=== PATIENT | female | born 1955 | race Caucasian/White ===

== ENCOUNTER 2016-10-16 10:53 | Emergency (ER) | payer OTHER ==
[~2016-10-16 10:53] MED LIST: ALBUTEROL SUL0.083 % IN; ALDACTONE25 MG PO; CARVEDILOL12.5 MG PO; CLARITIN10 M2 PO; DELZICOL400 MG PO; DIFLUCAN100 MG PO; DIPHENOXYLATE/2.5 MG PO; DOCUSATE CALCI240 MG PO; FAMCICLOVIR250 MG PO; FLUTICASONE PR50 MCG; FOLIC ACID1 MG PO; FUROSEMIDE40 MG PO; KLOR-CON 1010 MEQ PO; LEVO-T88 MCG PO; LIALDA1.2 GM PO; LIDODERM5 % TOP; LOSARTAN POTASS1 TA1; LOSARTAN POTASS1 TA1 PO; METHOCARBAMOL500 MG PO; METHOTREXATE2.5 MG PO; METOLAZONE5 MG PO; MILLIPRED DP5 MG PO; MUPIROCIN2 %; NITRO-DUR0.4 MG/HR SL; NORCO1 TA1 PO; PERCOCET1 TA1 PO; POTASSIUM CHLORI10 % PO; PREDNISONE20 MG PO; PROVENTIL HFA IN; VITAMIN D H1000 UNIT PO; ZOFRAN ODT4 MG PO
--- NOTE | 2016-10-16 12:18 | DIAGNOSTIC IMAGING REPORT ---
PROCEDURE: XR CHEST 1 VIEW INDICATION: SHORTNESS OF BREATH TECHNIQUE: Portable AP view chest 11:52 a.m. COMPARISON: Chest 09/02/2014 FINDINGS: New pacemaker on the right. Lungs are clear. Heart is mildly enlarged. mediastinum is normal. Thorax is normal. IMPRESSION: 1. Mild cardiomegaly. Lungs clear.
--- NOTE | 2016-10-16 19:30 | ED NURSING NOTES ---
Clinical Report - Nurses [facility] [address] [place] [address] 10/16/2016 10:54 Patient: LUISA BADILLO TRIAGE Triage time 1110. Acuity: LEVEL 3. Chief Complaint: (pt brought in by daughter, c/o cough, fever, general body aches- has had for 3 weeks, but much worse last 2 days). 11:10. ARTEMIO COMA SCORE: [place] Coma Scale: 15- eyes open spontaneously (4); best verbal response- oriented x 4 (5); best motor response- obeys commands (6). --11:30 Guadalupe Dominguez R.N. 11:22 10/16/16. BP: 115/51. HR: 102. RR: 20. O2 saturation: 94% on room air. Temp: 99.3 F. Pain level now: 06/30. Additional comments: 97 on 2 L . --11:30 Guadalupe Dominguez R.N. Weight: 57.6 kg estimated. Height/Length: 66.5 inches Estimated. BMI: 20.2. --11:30 Guadalupe Dominguez R.N. Medications Albuterol Sulfate Inhalation 1 unit dose, q 6hrs as needed. Carvedilol Oral 28.125 mg , BID. Claritin Oral 10 mg, PRN. Docusate Calcium Oral (Capsule 240 mg) 4 capsules daily. Famciclovir Oral 250 mg, 2x a day. Fluconazole Oral 100 mg, daily, for 9 days. Fluticasone Propionate Nasal 2 sprays each nostril daily or BID. Furosemide Oral 160 mg, 2x a day. Hydrocodone-Acetaminophen Oral 5 mg, as needed, max 9 in 24hrs. Levothyroxine Sodium Oral 88 mcg, daily. Losartan Potassium Oral 25 mg, daily. Mesalamine Oral 1.2 gms, 2 tabs daily. Methotrexate Oral 2.5 mg, 8 tablets, once a week. Nitroglycerin Translingual 0.4mg tablet, as needed. Potassium Chloride CR Oral (Tablet Extended Release 10 meq) 4 tablets, BID. PrednisoLONE Oral 15mg, 2x a day. Proventil HFA Inhalation 1-2 puffs, NTE 10 puffs, 4x a day as needed. Spironolactone Oral 25 mg, daily. --11:26 Guadalupe Dominguez R.N. Vitamin D Oral (Capsule 2000 unit) 1 capsule, daily. Zofran Oral 4 mg, as needed. --11:26 Guadalupe Dominguez R.N. Allergies Acyclovir and Related. Carbamazepine. Cefaclor. Flagyll. Glucosamine. Morphine and Related. Naproxen. Nitrofurantoin. Sulfa Antibiotics. Tegratol. --11:26 Guadalupe Dominguez R.N. History Arrived by private vehicle. Historian: patient. Accompanied by (dropped off by daughter). Primary physician (Sonam). Onset. (3 weeks). She has had fever and weakness. She has had a cough (yellow sputum). Reports muscle aches. SOCIAL HX: Former smoker (quit 1997). Alcohol use. (did drink in past, hasn't since colon surgery). No drug use. --11:30 Guadalupe Dominguez R.N. PROBLEMS: Arthritis. Syncope. Hypomagnesemia. Heart Disease. Myofascial Strain. Fibromyalgia. Hypokalemia. Congestive Heart Failure. Hypertension. Migraine Headache. Hypothyroidism. Stress Reaction. C. Difficile Colitis. Rectal Bleed. Vitamin D deficiency. Ulcerative Colitis. Osteopenia. Breast Cancer. Arthropathy. COPD - Chronic Obstructive Pulmonary Disease. --11:27 Guadalupe Dominguez R.N. ADDITIONAL SURGERIES: Breast CA lumpectomy left side. Endometriosis. Hemmorhage with child . Sinus Surgery. Tonsillectomy. Tubal Ligation. --11:27 Guadalupe Dominguez R.N. Interventions ID band on patient. To treatment room. --11:30 Guadalupe Dominguez R.N. PHYSICAL ASSESSMENT 11:10. To room via wheelchair. Patient gowned. GENERAL / NEURO / PSYCH: Alert. Appears in pain. She has had weakness. HEENT: No facial asymmetry noted. RESPIRATORY: Cough. CVS: Capillary refill less than 2 seconds. GI / : Abdomen soft. SKIN: Skin is warm and dry. --11:31 Guadalupe Dominguez R.N. NURSING PROGRESS NOTES 11:10. Oxygen administered. Patient gowned. Head of bed elevated. Reassurance given. Patient identifiers checked. Call light placed in reach. Side rails up. Bed placed in lowest position. Patient ready for evaluation- chart flagged. --11:31 Guadalupe Dominguez R.N. 11:33 10/16/16. BP: 116/54. HR: 104. RR: 24. O2 saturation: 96% on nasal cannula at 2 liters/minute. Temp: deferred. Pain level now: 06/30. Additional comments: pt dozing, but when asked, states she is a 06/30. moans occasionally . --11:34 Guadalupe Dominguez R.N. 11:45 10/16/2016 Site #1 started via IV in the right antecubital space with an 20g angiocath, with aseptic technique and good blood return; one attempt. Blood drawn: rainbow set and cultures x1. Labeled in the presence of the patient and sent to the lab. Saline lock flushed with saline. --12:09 Guadalupe Dominguez R.N. 12:10 10/16/2016 Started bag #1 1000 mL IV Fluids IV NS (Saline); bolus of 200 mL over 15 minute(s) then at 100 mL/hr over 9 hour(s) via site #1 via IV pump. --12:11 Guadalupe Dominguez R.N. EKG time: (1241). EKG was performed by a tech and shown to the ED physician. --12:40 Shannen Finley 12:25 10/16/2016 IV Fluids IV NS via IV site #1 Rate Changed: bag #1 decreased to 100 mL/hr via IV pump. IV patency established. IV site checked: no pain, redness, or swelling. IV flushed thoroughly. --12:44 Gaudalupe Dominguez R.N. 13:33 10/16/16. ( Potassium 2.6, critical value relayed to ERMD). --13:33 Shari Holt R.N. 14:25 10/16/2016 Demerol (Meperidine HCl) IVP 12.5 mg given over 1 minute(s) via site #1. IV patency established. IV site checked: no pain, redness, or swelling. IV flushed thoroughly pre- and post-medication administration. IVP given by RN. --14:36 Guadalupe Dominguez R.N. 14:26 10/16/2016 Ativan (LORazepam) IVP 0.5 mg given over 1 minute(s) via site #1. IV patency established. IV site checked: no pain, redness, or swelling. IV flushed thoroughly pre- and post-medication administration. IVP given by RN. --14:36 Guadalupe Dominguez R.N. 13:30 10/16/16. BP: 124/72. HR: 110. RR: 22. O2 saturation: 99%. Temp: deferred. Pain level now: 06/30. Additional comments: Pt asking for pain meds, ERMD notified again. --14:53 Guadalupe Dominguez R.N. 14:00 10/16/16. BP: 114/63. HR: 117. RR: 24. O2 saturation: 95% on nasal cannula at 2 liters/minute. Temp: deferred. Pain level now: 06/30. --14:54 Guadalupe Dominguez R.N. 14:50 10/16/2016 KCL (Potassium Chloride ER) PO Syrup/Liquid 40 meq given. Allergies verified and confirmed 5 rights. --15:37 Guadalupe Dominguez R.N. 14:40. ( Pt up to [facility] she had stated she had to pee, but did not void, pt did clean out colostomy bag, but was very unsteady and needed much assistance). --15:38 Guadalupe Dominguez R.N. 15:30 10/16/16. BP: 103/73. HR: 120. RR: 26. O2 saturation: 92% on nasal cannula. Temp: deferred. Pain level now: cannot qualify. Additional comments: pt is sleeping. --15:47 Guadalupe Dominguez R.N. 15:15 10/16/2016 Started 20 meq of KCL (Potassium Chloride) IVPB in bag #1 100 mL; at 50 mL/hr over 2 hour(s) via site #1 via IV pump. IV patency established. IV site checked: no pain, redness, or swelling. IV flushed thoroughly pre- and post-medication administration. --15:48 Guadalupe Dominguez R.N. ( first contact with pt. Pt. resting quietly.). --16:31 Concetta Marlow R.N. 16:21 10/16/16. BP: 112/74. HR: 113. RR: 20. O2 saturation: 96% on nasal cannula at 2 liters/minute. --16:31 Concetta Marlow R.N. photoengraver apprentice, pulse oximeter and NIBP monitor placed on patient; director cardiac- Lead II; monitor alarms on. --16:31 Concetta Marlow R.N. 17:05 10/16/16. BP: 106/69. HR: 115. RR: 22. O2 saturation: 96% on nasal cannula at 2 liters/minute. Temp: deferred. Pain level now: 04/30. --18:00 Guadalupe Dominguez R.N. 17:20 10/16/2016 Demerol (Meperidine HCl) IVP 12.5 mg given over 1 minute(s) via site #1. --18:01 Guadalupe Dominguez R.N. 17:35. Patient ID band checked for patient name and birthdate. Clean catch urine collected with return of tobias-colored cloudy urine; odor is foul-smelling; sample sent to lab for urinalysis and culture. Specimen labeled in the presence of the patient. ( Pt on bedpan, voided 200cc). --18:02 Guadalupe Dominguez R.N. 17:20 10/16/2016 KCL IVPB Discontinued: bag #1 infused. Total amount infused: 100 mL. IV patency established. IV site checked: no pain, redness, or swelling. IV flushed thoroughly. --18:23 Guadalupe Dominguez R.N. 18:00. ( lab called, stating repeat K-3.9 ERMD notified). --18:25 Guadalupe Dominguez R.N. 19:05 10/16/16. BP: 112/67. HR: 96. RR: 20. O2 saturation: 95% on nasal cannula at 2 liters/minute. Temp: deferred. Pain level now: cannot qualify. Additional comments: pt dozing ; when awoke, HR wnet to 106 and pt asked for additional pain meds, ERMD notified, states he will be in to talk with pt soon . --19:18 Guadalupe Dominguez R.N. 19:24 10/16/16. ( ERMD in to talk with pt. Pt agreed to plan to DC home). --19:24 Guadalupe Dominguez R.N. 19:30 10/16/2016 Augmentin (Amoxicillin-Pot Clavulanate) PO Tablets 875 mg given. Allergies verified and confirmed 5 rights. --20:21 Guadalupe Dominguez R.N. 20:10 10/16/2016 Demerol (Meperidine HCl) IVP 12.5 mg given over 1 minute(s) via site #1. IV patency established. IV site checked: no pain, redness, or swelling. IV flushed thoroughly pre- and post-medication administration. IVP given by RN. --20:22 Guadalupe Dominguez R.N. 20:11 10/16/2016 IV Fluids IV NS Discontinued: bag #1 completed upon discharge. Total amount infused: 1000 mL. IV patency established. IV site checked: no pain, redness, or swelling. IV flushed thoroughly. --20:21 Indio Mcmanus R.N. DISPOSITION / DISCHARGE 20:18 10/16/2016 Site #1 removed upon discharge. Catheter intact. Bandaid applied. --20:18 Indio Mcmanus R.N. Departure time: 20:19. Condition at departure: improved. ( Pt was placed on a bedside commode before being discharged.). No learning barriers present. Discharge instructions provided and reviewed with the patient. Reviewed warnings. Reviewed medication(s). Treatments reviewed. Work note given. Patient verbalized understanding. The patient was discharged by the physician. She was discharged home and accompanied by spouse. She left the Emergency Department ambulatory and via private vehicle. Spouse driving. --20:19 Indio Mcmanus R.N. 20:20 10/16/16. BP: 112/67. HR: 96. RR: 16. O2 saturation: 96%. Pain level now 12/29. --20:21 Indio Mcmanus R.N. Locked/Released at 10/16/2016 20:22 by Indio Mcmanus R.N.
--- NOTE | 2016-10-16 19:30 | ED CLINICAL REPORT ---
Clinical Report - Physicians/Mid Levels [facility] [address] [place] [address] 10/16/2016 10:54 Patient: LUISA BADILLO Time Seen: 11:37 Oct 16 2016. Arrived- By private vehicle. Historian- patient. CPT: ER phys charges level 4 plus (#[id number]). EKG interpretation (#[id number]). HISTORY OF PRESENT ILLNESS Chief Complaint: COUGH, FEVER, CHILLS, MUSCLE ACHES and "FLU". This started about 3 weeks GASKET FORMER and is still present (worse 2 days GASKET FORMER). The illness is described as moderate. The patient has had a cough, difficulty breathing, fever, chills and muscle aches. No nasal congestion, sinus pressure or sinus drainage. Additional history - No known contact with a sick individual. Similar symptoms previously: None. Recent medical care: Not recently seen/assessed. REVIEW OF SYSTEMS The patient has had a headache. No nausea, vomiting, diarrhea, abdominal pain or pedal edema. No calf pain, difficulty with urination, skin rash or enlarged lymph nodes. All systems otherwise negative, except as recorded above. PAST HISTORY CHF Hypertension. Migraine Headache. Hypothyroidism. Stress Reaction. C. Difficile Colitis. PARISA. Rectal Bleed. Ulcerative Colitis. Osteopenia. Breast Cancer. COPD - Chronic Obstructive Pulmonary Disease Fibromyalgia Additional Surgeries: Breast CA lumpectomy left side. Endometriosis. Hemmorhage with child . Sinus Surgery. Tonsillectomy. Tubal Ligation. AICD/Pacer Colectomy/colostomy. Medications: Vitamin D Oral (Capsule 2000 unit) 1 capsule, daily. Zofran Oral 4 mg, as needed. Albuterol Sulfate Inhalation 1 unit dose, q 6hrs as needed. Carvedilol Oral 28.125 mg , BID. Claritin Oral 10 mg, PRN. Docusate Calcium Oral (Capsule 240 mg) 4 capsules daily. Famciclovir Oral 250 mg, 2x a day. Fluconazole Oral 100 mg, daily, for 9 days. Fluticasone Propionate Nasal 2 sprays each nostril daily or BID. Furosemide Oral 160 mg, 2x a day. Hydrocodone-Acetaminophen Oral 5 mg, as needed, max 9 in 24hrs. Levothyroxine Sodium Oral 88 mcg, daily. Losartan Potassium Oral 25 mg, daily. Mesalamine Oral 1.2 gms, 2 tabs daily. Methotrexate Oral 2.5 mg, 8 tablets, once a week. Nitroglycerin Translingual 0.4mg tablet, as needed. Potassium Chloride CR Oral (Tablet Extended Release 10 meq) 4 tablets, BID. PrednisoLONE Oral 15mg, 2x a day. Proventil HFA Inhalation 1-2 puffs, NTE 10 puffs, 4x a day as needed. Spironolactone Oral 25 mg, daily. Allergies: Acyclovir and Related. Carbamazepine. Cefaclor. Flagyll. Glucosamine. Morphine and Related. Naproxen. Nitrofurantoin. Sulfa Antibiotics. Tegratol. SOCIAL HISTORY Former smoker. No alcohol use. ADDITIONAL NOTES The nursing notes have been reviewed. PHYSICAL EXAM Vital Signs: 10/16/2016 11:22 BP: 115/51. HR: 102. RR: 20. O2 saturation: 94%. Temp: 99.3 F. Pain level now: 10/10. Appearance: Alert. No acute distress. Eyes: Pupils equal, round and reactive to light. Eyes normal inspection. ENT: Ears normal. Pharyngeal erythema. Neck: Normal inspection. CVS: Normal heart rate and rhythm. Heart sounds normal. Pulses normal. Respiratory: No respiratory distress. Breath sounds normal. Abdomen: Soft and nontender. Back: Normal inspection. Skin: Skin warm. Normal skin color. No rash. Extremities: Extremities exhibit normal ROM. No lower extremity edema. Neuro: Oriented X 3. No motor deficit. No sensory deficit. LABS, X-RAYS, AND EKG EKG: Paced rhythm. Prior EKG unavailable. The study has been interpreted contemporaneously. The study has been independently viewed by me. The EKG appears to be a good tracing. Chest X-ray: Mild cardiomegaly. Normal lung markings present. No infiltrate. (Pacer). Views: AP (portable). Technique: good. The X-rays were independently viewed by me and interpreted by the radiologist. Laboratory Tests: CBC w Diff: (MADELINE: 10/16/2016 11:45) ( MsgRcvd 10/16/2016 12:59) Final results Test Result Flag Units (Reference) WHITE BLOOD COUNT 11.7 H K/uL (4.5-11.5) RED BLOOD COUNT 4.29 M/uL (4.00-5.20) HEMOGLOBIN 12.4 gm/dL (12.0-16.0) HEMATOCRIT 38.0 % (36.0-46.0) MEAN CELL VOLUME 89 fL (80-100) MEAN CORPUSCULAR HGB 29 pg (26-34) MEAN CORPUSCULAR HGB CONC 33 g/dL (31-37) RED CELL DISTRIBUTION WIDTH 24.7 H % (11.6-14.8) PLATELET COUNT 475 H K/uL (150-400) NEUTROPHIL % 85.3 H % (50-75) LYMPH % 7.3 L % (25-40) MONO % 6.7 % (3-14) EOSINOPHIL % 0.3 % (0-4) BASOPHIL % 0.4 % (0-2) RBC MORPHOLOGY 1+ TARGET CELLS~~2+ STOMATOCYTOSIS~~2+ ANISOCYTOSIS BNP: (MADELINE: 10/16/2016 11:45) ( [facility] 10/16/2016 12:39) Final results Test Result Flag Units (Reference) B-TYPE NATRIURETIC PEPTIDE 69.9 pg/ml (5-100) Lactate, Serum: (MADELINE: 10/16/2016 11:45) ( MsgRcvd 10/16/2016 12:46) Final results Test Result Flag Units (Reference) LACTIC ACID 1.2 mmol/L (0.4-2.0) [id number]: (MADELINE: 10/16/2016 11:45) ( [facility] 10/16/2016 13:02) Final results Test Result Flag Units (Reference) PROCALCITONIN <0.5 ng/mL (0-0.5) PCT Concentration: Interpretation : Risk/option for action PCT <=0.5 ng/mL : Systemic : Low risk forinfection(sepsis): progression to severeis not likely. : systemic infection.Local bacterial : CAUTION-PCT levelsinfection is : below 0.5 ng/mL do notpossible. : exclude an infection,because localizedinfections (withoutsystemic signs) may beassociated with suchlow levels. If PCT ismeasured very earlyafter a bacterialchallenge (usually <6hours), these valuesmay still be low. Inthis case PCT shouldbe re-assessed 6-24hours later. PCT >0.5 and : Systemic infection: Moderate risk for<= 2 ng/mL : (sepsis) is : progression to severepossible, but : systemic infection.other conditions : The patient should beare known to : closely monitoredelevate PCT. : both clinically andby re-assessing PCTwithin 6-24 hours. PCT > 2 ng/mL : Systemic infection: High risk for(sepsis) is likely: progression to severeunless other : systemic infection.causes are known. : PCT >= 10 ng/mL : Important systemic: High likelihood ofinflammatory : severe sepsis orresponse, almost : septic shock.exclusively due to:severe bacterial :sepsis or septic :shock. : CHEM 13 PANEL: (MADELINE: 10/16/2016 11:45) ( MsgRcvd 10/16/2016 13:33) Final results Test Result Flag Units (Reference) GLUCOSE 89 mg/dL (70-110) BUN 19 H mg/dL (7-18) CREATININE 1.0 mg/dL (0.6-1.3) Estimated GFR 59.71 mL/min Estimated GFR- >60 mL/min Note: Persistent reduction over 3 months in eGFR<60 mL/min/1.73 m2 defines CKD. Patients with eGFR values>=60 mL/min/1.73 m2 may also have CKD if evidence ofpersistent proteinuria. Additional information may be foundat www.kidney.org. SODIUM 136 mmol/L (136-145) POTASSIUM 2.6 *L mmol/L (3.5-5.1) CRITICAL RESULTS CALLEDCalled to KAPIL MARTÍNEZ IN ED 10/16/16 1332Were 2 patient identifiers used? YWas the result read back? Y CHLORIDE 96 L mmol/L (98-107) CARBON DIOXIDE 28 mmol/L (21-32) CALCIUM 9.1 mg/dL (8.5-10.1) TOTAL PROTEIN 6.9 g/dL (6.4-8.2) ALBUMIN 3.1 L g/dL (3.3-5.0) BILIRUBIN, TOTAL 0.8 mg/dL (0.0-1.0) ALKALINE PHOSPHATASE 80 U/L (46-116) AST (SGOT) 25 U/L (15-37) ALT (SGPT) 30 U/L (12-78) MAGNESIUM 1.7 L mg/dL (1.8-2.4) CPK 59 U/L (24-260) TROPONIN I 0.06 ng/mL (0.00-1.5) TROPONIN REFERENCE RANGE:<0.1 NEGATIVE0.1-1.5 INDETERMINANT>1.5 POSITIVE Rapid Influenza Screen: (MADELINE: 10/16/2016 11:58) ( MsgRcvd 10/16/2016 12:32) Final results SPECIMEN DESCRIPTION: SWAB Test Result Flag Units (Reference) RAPID INFLUENZA SCREEN DATE: 10/16/16 INFLUENZA A: NEGATIVE SCREEN FOR INFLUENZA A INFLUENZA B: NEGATIVE SCREEN FOR INFLUENZA B . PROGRESS AND PROCEDURES Course of Care: 14:41 10/16/16. The patient indicates that she had a heart attack in the past and reactions to rheumatologic medications that resulted in CHF. This is why she is on the cardiac medications and the diuretics. She is here today primarily because of her increased cough sputum production and dyspnea over the last several days. She is also weak today and has a potassium of 2.6 as well as some dehydration that would help explain that. 18:24 10/16/16. Potassium level now corrected to 3.9 after ,PO and IV potassium. Patient is stable. Symptoms better. Patient/family counseled. Disposition: Discharged. Condition: stable. CLINICAL IMPRESSION Acute bacterial bronchitis associated with bronchospasm. Hypokalemia: resolved after treatment. Chronic CHF Dehydration. INSTRUCTIONS No strenuous activity. Rest. Drink plenty of fluids. (Hold your lasix for one day.). Warnings: Further evaluation is necessary. SEDATIVE MEDICATION: You were given sedative medication during your visit. Do not drive or operate dangerous machinery. GENERAL WARNINGS: Return or contact your physician immediately if your condition worsens or changes unexpectedly, if not improving as expected, or if other problems arise. Your Current Medications: CONTINUE TAKING THE FOLLOWING MEDICATIONS: Albuterol Sulfate Inhalation : 1 unit dose q 6hrs, prn. Carvedilol Oral : 28.125 mg BID. Claritin Oral : 10 mg PRN. Docusate Calcium Oral : Capsule 240 mg, 4 capsules daily. Famciclovir Oral : 250 mg 2x a day. Fluconazole Oral : 100 mg daily, for 9 days. Fluticasone Propionate Nasal : 2 sprays each nostril daily or BID. Furosemide Oral : 160 mg 2x a day. Hydrocodone-Acetaminophen Oral : 5 mg, prn, max 9 in 24hrs. Levothyroxine Sodium Oral : 88 mcg daily. Losartan Potassium Oral : 25 mg daily. Mesalamine Oral : 1.2 gms, 2 tabs daily. Methotrexate Oral : 2.5 mg, 8 tablets once a week. Nitroglycerin Translingual : 0.4mg tablet, prn. Potassium Chloride CR Oral : Tablet Extended Release 10 meq, 4 tablets BID. PrednisoLONE Oral : 15mg 2x a day. Proventil HFA Inhalation : 1-2 puffs, NTE 10 puffs 4x a day, prn. Spironolactone Oral : 25 mg daily. Vitamin D Oral : Capsule 2000 unit, 1 capsule daily. Zofran Oral : 4 mg, prn. Prescription Medications: Albuterol HFA oral inhaler: inhale 2 puffs via spacer every 4 hours as needed for wheezing or difficulty breathing, until symptoms improve. Dispense one (1) unit. No refill. Albuterol 0.083% Inhalation Solution: inhale 1 unit dose (3 mL) via nebulizer every 4 hours until symptoms improve, as needed for wheezing or difficulty breathing. Dispense thirty (30) units. No refills. Augmentin 875 mg: take 1 tablet orally every 12 hours for 7 days. Dispense fourteen (14). No refills. Substitution is permissible. Hydrocodone / APAP Liquid 7.5mg/325mg/15 mL: take ten (10) mL orally every 6 hours as needed. Dispense two hundred (200) mL. No refill. Follow-up: Follow up with your doctor Thursday in four days. Call for an appointment. Understanding of the discharge instructions verbalized by patient. (Electronically signed by Alessandro Maier MD 10/20/2016 1:09) Addenda for MIESHALUISLUISA REBOLLEDO VisitID: [id number] Date: 10/16/2016 10/16/2016 21:24 late entry: 2006 Pt up to [facility] with staff assist. voided approx 300cc urine, and emptied colostomy bag. Assisted with getting dressed, out via w/c by family member. (Electronically signed by Guadalupe Dominguez R.N. - 10/16/2016 21:24)
--- NOTE | 2016-10-16 19:30 | ED ORDER SUMMARY ---
..... Patient: LUISA BADILLO OrderSheet [facility] VisitID: [id number] [place] [address] 61y, F Registration Date/Time: 10/16/2016 ORDER SHEET Weight: 57.6 kg (estimated) Allergies: Acyclovir and Related, Carbamazepine, Cefaclor, Flagyll, Glucosamine, Morphine and Related, Naproxen, Nitrofurantoin, Sulfa Antibiotics, Tegratol GENERAL ORDERS: Blood Culture (No) (N/A) Urgent (11:42 10/16/2016 Amanda AMOS) (Ack 11:48 TBergley) (12:10 DDean R.N.) Cardiac Panel Stat (11:10/16/2016 Amanda AMOS) (Ack 11:48 TBergley) (12:09 DDean R.N.) BNP Urgent (11:10/16/2016 Amanda AMOS) (Ack 11:48 TBergley) (12:09 DDean R.N.) Lactate, Serum Urgent (11:42 10/16/2016 Amanda AMOS) (Ack 11:48 TBergley) (12:10 DDean R.N.) PCT (Procalcitonin) Urgent (11:42 10/16/2016 Amanda AMOS) (Ack 11:48 TBergley) (12:10 DDean R.N.) Chest 1V Urgent (11:43 10/16/2016 Amanda AMOS) (Ack 11:48 TBergley) (11:55 TBergley) Assorter Laundry (Continuous) (11:43 10/16/2016 Amanda AMOS) (Ack 11:48 TBergley) (12:10 DDean R.N.) Rapid Influenza Screen (Nasal Pharyngeal) (swab) Urgent (11:43 10/16/2016 Amanda AMOS) (Ack 11:48 TBergley) (12:10 DDean R.N.) Oxygen (2 L/min) (NC) (11:43 10/16/2016 Amanda AMOS) (Ack 11:48 TBergley) (12:10 DDean R.N.) Pulse oximeter (11:43 10/16/2016 Amanda AMOS) (Ack 11:48 TBergley) (12:10 DDean R.N.) EKG - ER Stat (11:43 10/16/2016 Amanda AMOS) (Ack 11:48 TBergley) (12:39 TBergley) Old Records ([facility] serafin) (14:42 10/16/2016 Amanda AMOS) (15:01 DDean R.N.) BMP Urgent (17:24 10/16/2016 Amanda AMOS) (Ack 17:31 LMuller) (18:24 DDean R.N.) MEDICATION ORDERS: KCl PO 40 meq (NOW) (14:27 10/16/2016 Amanda AMOS) (Ack 14:43 DDean R.N.) (15:37 DDean R.N.) Augmentin PO 875 mg (NOW) (19:27 10/16/2016 Amanda AMOS) (Ack 19:28 DDean R.N.) (20:21 DDean R.N.) IV FLUIDS: IV NS : initial bolus 200 mL (1000 mL/hr), then 100 mL/hr for 4h (NOW); Routine (11:43 10/16/2016 Amanda AMOS) (12:11 DDean R.N.) Demerol IV 12.5 mg (NOW) (14:15 10/16/2016 Amanda AMOS) (14:36 DDean R.N.) Ativan IV 0.5 mg (NOW) (14:15 10/16/2016 Amanda AMOS) (14:36 DDean R.N.) KCl IV 20 meq/100mL (Run no faster than 10 units/hr, NOW, Run no faster than 10 mEq/hr) (14:28 10/16/2016 Amanda AMOS) (Ack 14:43 DDean R.N.) (15:48 DDean R.N.) Demerol IV 12.5 mg (NOW) (17:23 10/16/2016 Amanda AMOS) (Ack 17:27 DDean R.N.) (18:01 DDean R.N.) Demerol IV 12.5 mg (NOW) (20:21 10/16/2016 Monica LawrenceNPatricia verbal order read back to Amanda AMOS) ORDER SHEET NOTES: [Electronically signed by Indio Mcmanus R.N. (20:22 10/16/2016)] [Electronically signed by Alessandro Maier MD (01:09 10/20/2016)] [Electronically locked/signed by Indio Mcmanus R.N. (20:10/16/2016)]
--- NOTE | 2016-10-16 19:30 | ED CLINICAL REPORT ---
Clinical Report - Physicians/Mid Levels [facility] [address] [place] [address] 10/16/2016 10:54 Patient: LUISA BADILLO Time Seen: 11:37 Oct 16 2016. Arrived- By private vehicle. Historian- patient. CPT: ER phys charges level 4 plus (#[id number]). EKG interpretation (#[id number]). HISTORY OF PRESENT ILLNESS Chief Complaint: COUGH, FEVER, CHILLS, MUSCLE ACHES and "FLU". This started about 3 weeks CAR LUBRICATOR and is still present (worse 2 days CAR LUBRICATOR). The illness is described as moderate. The patient has had a cough, difficulty breathing, fever, chills and muscle aches. No nasal congestion, sinus pressure or sinus drainage. Additional history - No known contact with a sick individual. Similar symptoms previously: None. Recent medical care: Not recently seen/assessed. REVIEW OF SYSTEMS The patient has had a headache. No nausea, vomiting, diarrhea, abdominal pain or pedal edema. No calf pain, difficulty with urination, skin rash or enlarged lymph nodes. All systems otherwise negative, except as recorded above. PAST HISTORY CHF Hypertension. Migraine Headache. Hypothyroidism. Stress Reaction. C. Difficile Colitis. PARISA. Rectal Bleed. Ulcerative Colitis. Osteopenia. Breast Cancer. COPD - Chronic Obstructive Pulmonary Disease Fibromyalgia Additional Surgeries: Breast CA lumpectomy left side. Endometriosis. Hemmorhage with child . Sinus Surgery. Tonsillectomy. Tubal Ligation. AICD/Pacer Colectomy/colostomy. Medications: Vitamin D Oral (Capsule 2000 unit) 1 capsule, daily. Zofran Oral 4 mg, as needed. Albuterol Sulfate Inhalation 1 unit dose, q 6hrs as needed. Carvedilol Oral 28.125 mg , BID. Claritin Oral 10 mg, PRN. Docusate Calcium Oral (Capsule 240 mg) 4 capsules daily. Famciclovir Oral 250 mg, 2x a day. Fluconazole Oral 100 mg, daily, for 9 days. Fluticasone Propionate Nasal 2 sprays each nostril daily or BID. Furosemide Oral 160 mg, 2x a day. Hydrocodone-Acetaminophen Oral 5 mg, as needed, max 9 in 24hrs. Levothyroxine Sodium Oral 88 mcg, daily. Losartan Potassium Oral 25 mg, daily. Mesalamine Oral 1.2 gms, 2 tabs daily. Methotrexate Oral 2.5 mg, 8 tablets, once a week. Nitroglycerin Translingual 0.4mg tablet, as needed. Potassium Chloride CR Oral (Tablet Extended Release 10 meq) 4 tablets, BID. PrednisoLONE Oral 15mg, 2x a day. Proventil HFA Inhalation 1-2 puffs, NTE 10 puffs, 4x a day as needed. Spironolactone Oral 25 mg, daily. Allergies: Acyclovir and Related. Carbamazepine. Cefaclor. Flagyll. Glucosamine. Morphine and Related. Naproxen. Nitrofurantoin. Sulfa Antibiotics. Tegratol. SOCIAL HISTORY Former smoker. No alcohol use. ADDITIONAL NOTES The nursing notes have been reviewed. PHYSICAL EXAM Vital Signs: 10/16/2016 11:22 BP: 115/51. HR: 102. RR: 20. O2 saturation: 94%. Temp: 99.3 F. Pain level now: 10/10. Appearance: Alert. No acute distress. Eyes: Pupils equal, round and reactive to light. Eyes normal inspection. ENT: Ears normal. Pharyngeal erythema. Neck: Normal inspection. CVS: Normal heart rate and rhythm. Heart sounds normal. Pulses normal. Respiratory: No respiratory distress. Breath sounds normal. Abdomen: Soft and nontender. Back: Normal inspection. Skin: Skin warm. Normal skin color. No rash. Extremities: Extremities exhibit normal ROM. No lower extremity edema. Neuro: Oriented X 3. No motor deficit. No sensory deficit. LABS, X-RAYS, AND EKG EKG: Paced rhythm. Prior EKG unavailable. The study has been interpreted contemporaneously. The study has been independently viewed by me. The EKG appears to be a good tracing. Chest X-ray: Mild cardiomegaly. Normal lung markings present. No infiltrate. (Pacer). Views: AP (portable). Technique: good. The X-rays were independently viewed by me and interpreted by the radiologist. Laboratory Tests: CBC w Diff: (MADELINE: 10/16/2016 11:45) ( MsgRcvd 10/16/2016 12:59) Final results Test Result Flag Units (Reference) WHITE BLOOD COUNT 11.7 H K/uL (4.5-11.5) RED BLOOD COUNT 4.29 M/uL (4.00-5.20) HEMOGLOBIN 12.4 gm/dL (12.0-16.0) HEMATOCRIT 38.0 % (36.0-46.0) MEAN CELL VOLUME 89 fL (80-100) MEAN CORPUSCULAR HGB 29 pg (26-34) MEAN CORPUSCULAR HGB CONC 33 g/dL (31-37) RED CELL DISTRIBUTION WIDTH 24.7 H % (11.6-14.8) PLATELET COUNT 475 H K/uL (150-400) NEUTROPHIL % 85.3 H % (50-75) LYMPH % 7.3 L % (25-40) MONO % 6.7 % (3-14) EOSINOPHIL % 0.3 % (0-4) BASOPHIL % 0.4 % (0-2) RBC MORPHOLOGY 1+ TARGET CELLS~~2+ STOMATOCYTOSIS~~2+ ANISOCYTOSIS BNP: (MADELINE: 10/16/2016 11:45) ( [facility] [place] Final results Test Result Flag Units (Reference) B-TYPE NATRIURETIC PEPTIDE 69.9 pg/ml (5-100) Lactate, Serum: (MADELINE: 10/16/2016 11:45) ( MsgRcvd 10/16/2016 12:46) Final results Test Result Flag Units (Reference) LACTIC ACID 1.2 mmol/L (0.4-2.0) [id number]: (MADELINE: 10/16/2016 11:45) ( [facility] [place]16[facility] 13:02) Final results Test Result Flag Units (Reference) PROCALCITONIN <0.5 ng/mL (0-0.5) PCT Concentration: Interpretation : Risk/option for action PCT <=0.5 ng/mL : Systemic : Low risk forinfection(sepsis): progression to severeis not likely. : systemic infection.Local bacterial : CAUTION-PCT levelsinfection is : below 0.5 ng/mL do notpossible. : exclude an infection,because localizedinfections (withoutsystemic signs) may beassociated with suchlow levels. If PCT ismeasured very earlyafter a bacterialchallenge (usually <6hours), these valuesmay still be low. Inthis case PCT shouldbe re-assessed 6-24hours later. PCT >0.5 and : Systemic infection: Moderate risk for<= 2 ng/mL : (sepsis) is : progression to severepossible, but : systemic infection.other conditions : The patient should beare known to : closely monitoredelevate PCT. : both clinically andby re-assessing PCTwithin 6-24 hours. PCT > 2 ng/mL : Systemic infection: High risk for(sepsis) is likely: progression to severeunless other : systemic infection.causes are known. : PCT >= 10 ng/mL : Important systemic: High likelihood ofinflammatory : severe sepsis orresponse, almost : septic shock.exclusively due to:severe bacterial :sepsis or septic :shock. : CHEM 13 PANEL: (MADELINE: 10/16/2016 11:45) ( MsgRcvd 10/16/2016 13:33) Final results Test Result Flag Units (Reference) GLUCOSE 89 mg/dL (70-110) BUN 19 H mg/dL (7-18) CREATININE 1.0 mg/dL (0.6-1.3) Estimated GFR 59.71 mL/min Estimated GFR- >60 mL/min Note: Persistent reduction over 3 months in eGFR<60 mL/min/1.73 m2 defines CKD. Patients with eGFR values>=60 mL/min/1.73 m2 may also have CKD if evidence ofpersistent proteinuria. Additional information may be foundat www.kidney.org. SODIUM 136 mmol/L (136-145) POTASSIUM 2.6 *L mmol/L (3.5-5.1) CRITICAL RESULTS CALLEDCalled to KAPIL MARTÍNEZ IN ED 10/16/16 1332Were 2 patient identifiers used? YWas the result read back? Y CHLORIDE 96 L mmol/L (98-107) CARBON DIOXIDE 28 mmol/L (21-32) CALCIUM 9.1 mg/dL (8.5-10.1) TOTAL PROTEIN 6.9 g/dL (6.4-8.2) ALBUMIN 3.1 L g/dL (3.3-5.0) BILIRUBIN, TOTAL 0.8 mg/dL (0.0-1.0) ALKALINE PHOSPHATASE 80 U/L (46-116) AST (SGOT) 25 U/L (15-37) ALT (SGPT) 30 U/L (12-78) MAGNESIUM 1.7 L mg/dL (1.8-2.4) CPK 59 U/L (24-260) TROPONIN I 0.06 ng/mL (0.00-1.5) TROPONIN REFERENCE RANGE:<0.1 NEGATIVE0.1-1.5 INDETERMINANT>1.5 POSITIVE Rapid Influenza Screen: (MADELINE: 10/16/2016 11:58) ( MsgRcvd 10/16/2016 12:32) Final results SPECIMEN DESCRIPTION: SWAB Test Result Flag Units (Reference) RAPID INFLUENZA SCREEN DATE: 10/16/16 INFLUENZA A: NEGATIVE SCREEN FOR INFLUENZA A INFLUENZA B: NEGATIVE SCREEN FOR INFLUENZA B . PROGRESS AND PROCEDURES Course of Care: 14:41 10/16/16. The patient indicates that she had a heart attack in the past and reactions to rheumatologic medications that resulted in CHF. This is why she is on the cardiac medications and the diuretics. She is here today primarily because of her increased cough sputum production and dyspnea over the last several days. She is also weak today and has a potassium of 2.6 as well as some dehydration that would help explain that. 18:24 10/16/16. Potassium level now corrected to 3.9 after ,PO and IV potassium. Patient is stable. Symptoms better. Patient/family counseled. Disposition: Discharged. Condition: stable. CLINICAL IMPRESSION Acute bacterial bronchitis associated with bronchospasm. Hypokalemia: resolved after treatment. Chronic CHF Dehydration. INSTRUCTIONS No strenuous activity. Rest. Drink plenty of fluids. (Hold your lasix for one day.). Warnings: Further evaluation is necessary. SEDATIVE MEDICATION: You were given sedative medication during your visit. Do not drive or operate dangerous machinery. GENERAL WARNINGS: Return or contact your physician immediately if your condition worsens or changes unexpectedly, if not improving as expected, or if other problems arise. Your Current Medications: CONTINUE TAKING THE FOLLOWING MEDICATIONS: Albuterol Sulfate Inhalation : 1 unit dose q 6hrs, prn. Carvedilol Oral : 28.125 mg BID. Claritin Oral : 10 mg PRN. Docusate Calcium Oral : Capsule 240 mg, 4 capsules daily. Famciclovir Oral : 250 mg 2x a day. Fluconazole Oral : 100 mg daily, for 9 days. Fluticasone Propionate Nasal : 2 sprays each nostril daily or BID. Furosemide Oral : 160 mg 2x a day. Hydrocodone-Acetaminophen Oral : 5 mg, prn, max 9 in 24hrs. Levothyroxine Sodium Oral : 88 mcg daily. Losartan Potassium Oral : 25 mg daily. Mesalamine Oral : 1.2 gms, 2 tabs daily. Methotrexate Oral : 2.5 mg, 8 tablets once a week. Nitroglycerin Translingual : 0.4mg tablet, prn. Potassium Chloride CR Oral : Tablet Extended Release 10 meq, 4 tablets BID. PrednisoLONE Oral : 15mg 2x a day. Proventil HFA Inhalation : 1-2 puffs, NTE 10 puffs 4x a day, prn. Spironolactone Oral : 25 mg daily. Vitamin D Oral : Capsule 2000 unit, 1 capsule daily. Zofran Oral : 4 mg, prn. Prescription Medications: Albuterol HFA oral inhaler: inhale 2 puffs via spacer every 4 hours as needed for wheezing or difficulty breathing, until symptoms improve. Dispense one (1) unit. No refill. Albuterol 0.083% Inhalation Solution: inhale 1 unit dose (3 mL) via nebulizer every 4 hours until symptoms improve, as needed for wheezing or difficulty breathing. Dispense thirty (30) units. No refills. Augmentin 875 mg: take 1 tablet orally every 12 hours for 7 days. Dispense fourteen (14). No refills. Substitution is permissible. Hydrocodone / APAP Liquid 7.5mg/325mg/15 mL: take ten (10) mL orally every 6 hours as needed. Dispense two hundred (200) mL. No refill. Follow-up: Follow up with your doctor Thursday in four days. Call for an appointment. Understanding of the discharge instructions verbalized by patient. (Electronically signed by Alessandro Maier MD 10/20/2016 1:09) Addenda for MIESHALUISLUISA REBOLLEDO VisitID: [id number] Date: 10/16/2016 10/16/2016 21:24 late entry: 2005 Pt up to [facility] with staff assist. voided approx 300cc urine, and emptied colostomy bag. Assisted with getting dressed, out via w/c by family member. (Electronically signed by Guadalupe Dominguez R.N. - 10/16/2016 21:24)
--- NOTE | 2016-10-16 19:30 | ED ORDER SUMMARY ---
..... [facility] [id number] [place] [address] 61y, F Registration Date/Time: 10/16/2016 ORDER SHEET Weight: 57.6 kg (estimated) Allergies: Acyclovir and Related, Carbamazepine, Cefaclor, Flagyll, Glucosamine, Morphine and Related, Naproxen, Nitrofurantoin, Sulfa Antibiotics, Tegratol GENERAL ORDERS: Blood Culture (No) (N/A) Urgent (11:42 10/16/2016 Amanda AMOS) (Ack 11:48 TBergley) (12:10 DDean R.N.) Cardiac Panel Stat (11:10/16/2016 Amanda AMOS) (Ack 11:48 TBergley) (12:09 DDean R.N.) BNP Urgent (11:10/16/2016 Amanda AMOS) (Ack 11:48 TBergley) (12:09 DDean R.N.) Lactate, Serum Urgent (11:42 10/16/2016 Amanda AMOS) (Ack 11:48 TBergley) (12:10 DDean R.N.) PCT (Procalcitonin) Urgent (11:42 10/16/2016 Amanda AMOS) (Ack 11:48 TBergley) (12:10 DDean R.N.) Chest 1V Urgent (11:43 10/16/2016 Amanda AMOS) (Ack 11:48 TBergley) (11:55 TBergley) Glass Pulverizer Equipment Operator (Continuous) (11:43 10/16/2016 Amanda AMOS) (Ack 11:48 TBergley) (12:10 DDean R.N.) Rapid Influenza Screen (Nasal Pharyngeal) (swab) Urgent (11:43 10/16/2016 Amanda AMOS) (Ack 11:48 TBergley) (12:10 DDean R.N.) Oxygen (2 L/min) (NC) (11:43 10/16/2016 Amanda AMOS) (Ack 11:48 TBergley) (12:10 DDean R.N.) Pulse oximeter (11:43 10/16/2016 Amanda AMOS) (Ack 11:48 TBergley) (12:10 DDean R.N.) EKG - ER Stat (11:43 10/16/2016 Amanda AMOS) (Ack 11:48 TBergley) (12:39 TBergley) Old Records ([facility] serafin) (14:42 10/16/2016 Amanda AMOS) (15:01 DDean R.N.) BMP Urgent (17:24 10/16/2016 Amanda AMOS) (Ack 17:31 LMuller) (18:24 DDean R.N.) MEDICATION ORDERS: KCl PO 40 meq (NOW) (14:27 10/16/2016 Amanda AMOS) (Ack 14:43 DDean R.N.) (15:37 DDean R.N.) Augmentin PO 875 mg (NOW) (19:27 10/16/2016 Amanda AMOS) (Ack 19:28 DDean R.N.) (20:21 DDean R.N.) IV FLUIDS: IV NS : initial bolus 200 mL (1000 mL/hr), then 100 mL/hr for 4h (NOW); Routine (11:43 10/16/2016 Amanda AMOS) (12:11 DDean R.N.) Demerol IV 12.5 mg (NOW) (14:15 10/16/2016 Amanda AMOS) (14:36 DDean R.N.) Ativan IV 0.5 mg (NOW) (14:15 10/16/2016 Amanda AMOS) (14:36 DDean R.N.) KCl IV 20 meq/100mL (Run no faster than 10 units/hr, NOW, Run no faster than 10 mEq/hr) (14:28 10/16/2016 Amanda AMOS) (Ack 14:43 DDean R.N.) (15:48 DDean R.N.) Demerol IV 12.5 mg (NOW) (17:23 10/16/2016 Amanda AMOS) (Ack 17:27 DDean R.N.) (18:01 DDean R.N.) Demerol IV 12.5 mg (NOW) (20:21 10/16/2016 Monica LawrenceNPatricia verbal order read back to Amanda AMOS) ORDER SHEET NOTES: [Electronically signed by Indio Mcmanus R.N. (20:22 10/16/2016)] [Electronically signed by Alessandro Maier MD (01:09 10/20/2016)] [Electronically locked/signed by Indio Mcmanus R.N. (20:10/16/2016)]
--- NOTE | 2016-10-20 01:09 | ED DISCHARGE INSTRUCTIONS ---
Patient: LUISA BADILLO General Instructions [facility] VisitID: [id number] [place] [address] 61y, F Registration Date/Time: 10/16/2016 Acute bacterial bronchitis associated with bronchospasm. Hypokalemia: resolved after treatment. Chronic CHF Dehydration. INSTRUCTIONS No strenuous activity. Rest. Drink plenty of fluids. (Hold your lasix for one day.). Warnings: Further evaluation is necessary. SEDATIVE MEDICATION: You were given sedative medication during your visit. Do not drive or operate dangerous machinery. GENERAL WARNINGS: Return or contact your physician immediately if your condition worsens or changes unexpectedly, if not improving as expected, or if other problems arise. Your Current Medications: CONTINUE TAKING THE FOLLOWING MEDICATIONS: Albuterol Sulfate Inhalation : 1 unit dose q 6hrs, prn. Carvedilol Oral : 28.125 mg BID. Claritin Oral : 10 mg PRN. Docusate Calcium Oral : Capsule 240 mg, 4 capsules daily. Famciclovir Oral : 250 mg 2x a day. Fluconazole Oral : 100 mg daily, for 9 days. Fluticasone Propionate Nasal : 2 sprays each nostril daily or BID. Furosemide Oral : 160 mg 2x a day. Hydrocodone-Acetaminophen Oral : 5 mg, prn, max 9 in 24hrs. Levothyroxine Sodium Oral : 88 mcg daily. Losartan Potassium Oral : 25 mg daily. Mesalamine Oral : 1.2 gms, 2 tabs daily. Methotrexate Oral : 2.5 mg, 8 tablets once a week. Nitroglycerin Translingual : 0.4mg tablet, prn. Potassium Chloride CR Oral : Tablet Extended Release 10 meq, 4 tablets BID. PrednisoLONE Oral : 15mg 2x a day. Proventil HFA Inhalation : 1-2 puffs, NTE 10 puffs 4x a day, prn. Spironolactone Oral : 25 mg daily. Vitamin D Oral : Capsule 2000 unit, 1 capsule daily. Zofran Oral : 4 mg, prn. Prescription Medications: Albuterol HFA oral inhaler: inhale 2 puffs via spacer every 4 hours as needed for wheezing or difficulty breathing, until symptoms improve. Dispense one (1) unit. No refill. Albuterol 0.083% Inhalation Solution: inhale 1 unit dose (3 mL) via nebulizer every 4 hours until symptoms improve, as needed for wheezing or difficulty breathing. Dispense thirty (30) units. No refills. Augmentin 875 mg: take 1 tablet orally every 12 hours for 7 days. Dispense fourteen (14). No refills. Substitution is permissible. Hydrocodone / APAP Liquid 7.5mg/325mg/15 mL: take ten (10) mL orally every 6 hours as needed. Dispense two hundred (200) mL. No refill. Follow-up: Follow up with your doctor Thursday in four days. Call for an appointment. Understanding of the discharge instructions verbalized by patient. ADDITIONAL INFORMATION Bronchitis (Adult: Abx Tx) BRONCHITIS is an infection of the air passages (bronchial tubes). It often occurs during the common cold. Symptoms include cough with mucus (phlegm) and low-grade fever. Bronchitis usually lasts 7-14 days. Mild cases can be treated with simple home remedies. More severe infection is treated with an antibiotic. Home Care: If symptoms are severe, rest at home for the first 2-3 days. When you resume activity, don't let yourself get too tired. Do not smoke. Avoid being exposed to the smoke of others. You may use acetaminophen (Tylenol) or ibuprofen (Motrin, Advil) to control fever or pain, unless another medicine was prescribed for this. [NOTE: If you have chronic liver or kidney disease or ever had a stomach ulcer or GI bleeding, talk with your doctor before using these medicines.] Your appetite may be poor, so a light diet is fine. Avoid dehydration by drinking 6-8 glasses of fluids per day (water, soft, drinks, juices, tea, soup, etc.). Extra fluids will help loosen secretions in the lungs. Ezel-omk-[id number] cough medicines that containdextromethorphan(such as Robitussin DM) and decongestants (Actifed or Sudafed) may help relieve cough and congestion. [NOTE: Do not use decongestants if you have high blood pressure.] Finish all antibiotic medicine, even if you are feeling better after only a few days. Follow Up with your doctor or as directed if you dont start to feel better after three days. [NOTE: If you are age 65 or older, or if you have chronic asthma or COPD, we recommend a PNEUMOCOCCAL VACCINATION every five years and a yearly INFLUENZAVACCINATION (FLU-SHOT) every . Ask your doctor about this. If you had an X-ray, a radiologist will review it. You will be notified of any new findings that may affect your care.] Get Prompt Medical Attention if any of the following occur: Fever over 100.4F (38.0C) for more than three days Trouble breathing, wheezing or pain with breathing Coughing up blood or increased amounts of colored sputum Weakness, drowsiness, headache, facial pain, ear pain or a stiff neck Albuterol Sulfate Pressurized inhalation, suspension What is this medicine? ALBUTEROL (al BYOO ter ole) is a bronchodilator. It helps open up the airways in your lungs to make it easier to breathe. This medicine is used to treat and to prevent bronchospasm. How should I use this medicine? This medicine is for inhalation through the mouth. Follow the directions on your prescription label. Take your medicine at regular intervals. Do not use more often than directed. Make sure that you are using your inhaler correctly. Ask you doctor or health care provider if you have any questions. Talk to your bowl attendant regarding the use of this medicine in children. Special care may be needed. What side effects may I notice from receiving this medicine? Side effects that you should report to your doctor or health director of critical care as soon as possible: allergic reactions like skin rash, itching or hives, swelling of the face, lips, or tongue breathing problems chest pain feeling faint or lightheaded, falls high blood pressure irregular heartbeat fever muscle cramps or weakness pain, tingling, numbness in the hands or feet vomiting Side effects that usually do not require medical attention (report to your doctor or health director of critical care if they continue or are bothersome): cough difficulty sleeping headache nervousness or trembling stomach upset stuffy or runny nose throat irritation unusual taste What may interact with this medicine? anti-infectives like chloroquine and pentamidine caffeine cisapride diuretics medicines for colds medicines for depression or for emotional or psychotic conditions medicines for weight loss including some herbal products methadone some antibiotics like clarithromycin, erythromycin, levofloxacin, and linezolid some heart medicines steroid hormones like dexamethasone, cortisone, hydrocortisone theophylline thyroid hormones What if I miss a dose? If you miss a dose, use it as soon as you can. If it is almost time for your next dose, use only that dose. Do not use double or extra doses. Where should I keep my medicine? Keep out of the reach of children. Store at room temperature between 15 and 30 degrees C (59 and 86 degrees F). The contents are under pressure and may burst when exposed to heat or flame. Do not freeze. This medicine does not work as well if it is too cold. Throw away any unused medicine after the expiration date. Inhalers need to be thrown away after the labeled number of puffs have been used or by the expiration date; whichever comes first. Ventolin HFA should be thrown away 12 months after removing from foil pouch. Check the instructions that come with your medicine. What should I tell my health care provider before I take this medicine? They need to know if you have any of the following conditions: diabetes heart disease or irregular heartbeat high blood pressure pheochromocytoma seizures thyroid disease an unusual or allergic reaction to albuterol, levalbuterol, sulfites, other medicines, foods, dyes, or preservatives or trying to get breast-feeding What should I watch for while using this medicine? Tell your doctor or health director of critical care if your symptoms do not improve. Do not use extra albuterol. If your asthma or bronchitis gets worse while you are using this medicine, call your doctor right away. If your mouth gets dry try chewing sugarless gum or sucking hard candy. Drink water as directed. Albuterol Sulfate Nebulizer solution What is this medicine? ALBUTEROL (al BYOO ter ole) is a bronchodilator. It helps to open up the airways in your lungs to make it easier to breathe. This medicine is used to treat and to prevent bronchospasm. How should I use this medicine? This medicine is used in a nebulizer. Nebulizers make a liquid into an aerosol that you breathe in through your mouth or your mouth and nose into your lungs. You will be taught how to use your nebulizer. Follow the directions on your prescription label. Take your medicine at regular intervals. Do not use more often than directed. Talk to your bowl attendant regarding the use of this medicine in children. Special care may be needed. What side effects may I notice from receiving this medicine? Side effects that you should report to your doctor or health director of critical care as soon as possible: allergic reactions like skin rash, itching or hives, swelling of the face, lips, or tongue breathing problems chest pain feeling faint or lightheaded, falls high blood pressure irregular heartbeat fever muscle cramps or weakness pain, tingling, numbness in the hands or feet vomiting Side effects that usually do not require medical attention (report to your doctor or health director of critical care if they continue or are bothersome): cough difficulty sleeping headache nervousness, trembling stomach upset stuffy or runny nose throat irritation unusual taste What may interact with this medicine? anti-infectives like chloroquine and pentamidine caffeine cisapride diuretics medicines for colds medicines for depression or emotional or psychotic conditions medicines for weight loss including some herbal products methadone some antibiotics like clarithromycin, erythromycin, levofloxacin, and linezolid some heart medicines steroid hormones like dexamethasone, cortisone, hydrocortisone theophylline thyroid hormones What if I miss a dose? If you miss a dose, use it as soon as you can. If it is almost time for your next dose, use only that dose. Do not use double or extra doses. Where should I keep my medicine? Keep out of the reach of children. Store between 2 and 25 degrees C (36 and 77 degrees F). Do not freeze. Protect from light. Throw away any unused medicine after the expiration date. Most products are kept in the foil package until time of use. Some products can be used up to 1 week after they are removed from the foil pouch. Check the instructions that come with your medicine. What should I tell my health care provider before I take this medicine? They need to know if you have any of the following conditions: diabetes heart disease or irregular heartbeat high blood pressure pheochromocytoma seizures thyroid disease an unusual or allergic reaction to albuterol, levalbuterol, sulfites, other medicines, foods, dyes, or preservatives or trying to get breast-feeding What should I watch for while using this medicine? Tell your doctor or health director of critical care if your symptoms do not improve. Do not use extra albuterol. Call your doctor right away if your asthma or bronchitis gets worse while you are using this medicine. If your mouth gets dry try chewing sugarless gum or sucking hard candy. Drink water as directed. Hydrocodone Bitartrate, Acetaminophen Oral solution What is this medicine? ACETAMINOPHEN; HYDROCODONE (a set a JITENDRA marysol fen; shantal droe KOE done) is a pain reliever. It is used to treat mild to moderate pain. How should I use this medicine? Take this medicine by mouth. Use a specially marked spoon or dropper to measure your dose. Ask your pharmacist if you do not have a dropper or measuring spoon. Do not use a household spoon. Follow the directions on the prescription label. If the medicine upsets your stomach, take it with food or milk. Do not take more medicine than you are told to take. Talk to your bowl attendant regarding the use of this medicine in children. This medicine is not approved for use in children. What side effects may I notice from receiving this medicine? Side effects that you should report to your doctor or health director of critical care as soon as possible: allergic reactions like skin rash, itching or hives, swelling of the face, lips, or tongue breathing problems confusion feeling faint or lightheaded, falls stomach pain yellowing of the eyes or skin Side effects that usually do not require medical attention (report to your doctor or health director of critical care if they continue or are bothersome): nausea, vomiting stomach upset What may interact with this medicine? alcohol antihistamines isoniazid medicines for depression, anxiety, or psychotic disturbances medicines for sleep muscle relaxants naltrexone narcotic medicines (opiates) for pain phenobarbital ritonavir tramadol What if I miss a dose? If you miss a dose, take it as soon as you can. If it is almost time for your next dose, take only that dose. Do not take double or extra doses. Where should I keep my medicine? Keep out of the reach of children. This medicine can be abused. Keep your medicine in a safe place to protect it from theft. Do not share this medicine with anyone. Selling or giving away this medicine is dangerous and against the law. Store at room temperature between 20 and 25 degrees C (68 and 77 degrees F). Protect from light. Keep container tightly closed. Throw away any unused medicine after the expiration date. Discard unused medicine and used packaging carefully. Pets and children can be harmed if they find used or lost packages. What should I tell my health care provider before I take this medicine? They need to know if you have any of these conditions: brain tumor Crohn's disease, inflammatory bowel disease, or ulcerative colitis drink more than 3 alcohol-containing drinks per day drug abuse or addiction head injury heart or circulation problems kidney disease or problems going to the bathroom liver disease lung disease, asthma, or breathing problems an unusual or allergic reaction to acetaminophen, hydrocodone, other opioid analgesics, other medicines, foods, dyes, or preservatives or trying to get breast-feeding What should I watch for while using this medicine? Tell your doctor or health director of critical care if your pain does not go away, if it gets worse, or if you have new or a different type of pain. You may develop tolerance to the medicine. Tolerance means that you will need a higher dose of the medicine for pain relief. Tolerance is normal and is expected if you take this medicine for a long time. Do not suddenly stop taking your medicine because you may develop a severe reaction. Your body becomes used to the medicine. This does NOT mean you are addicted. Addiction is a behavior related to getting and using a drug for a non-medical reason. If you have pain, you have a medical reason to take pain medicine. Your doctor will tell you how much medicine to take. If your doctor wants you to stop the medicine, the dose will be slowly lowered over time to avoid any side effects. You may get drowsy or dizzy when you first start taking the medicine or change doses. Do not drive, use machinery, or do anything that may be dangerous until you know how the medicine affects you. Stand or sit up slowly. There are different types of narcotic medicines (opiates) for pain. If you take more than one type at the same time, you may have more side effects. Give your health care provider a list of all medicines you use. Your doctor will tell you how much medicine to take. Do not take more medicine than directed. Call emergency for help if you have problems breathing. The medicine will cause constipation. Try to have a bowel movement at least every 2 to 3 days. If you do not have a bowel movement for 3 days, call your doctor or health director of critical care. Too much acetaminophen can be very dangerous. Do not take Tylenol (acetaminophen) or medicines that contain acetaminophen with this medicine. Many non-prescription medicines contain acetaminophen. Always read the labels carefully. You have been given the following additional information: Bronchitis, Antiobiotic Treatment (Adult) Albuterol Sulfate Pressurized inhalation, suspension Albuterol Sulfate Nebulizer solution Hydrocodone Bitartrate, Acetaminophen Oral solution No strenuous activity. Rest. (Electronically signed by Alessandro Maier MD 10/20/2016 1:09)
--- NOTE | 2016-10-20 01:10 | ED MAR SUMMARY ---
..... Medication Administration Record [facility] [address] [place] [address] Patient: LUISA BADILLO Visit ID: [id number] 61y, F Weight: 57.6 kg Height/Length: 66.5 in BMI: 20.2 ALLERGIES: Acyclovir and Related, Carbamazepine, Cefaclor, Flagyll, Glucosamine, Morphine and Related, Naproxen, Nitrofurantoin, Sulfa Antibiotics, Tegratol Start 12:10 10/16/2016 Guadalupe Dominguez R.N., Stop 20:11 10/16/2016 Indio Mcmanus R.N. Medication Administered: IV NS (SALINE), Dose: IV Fluids over 9 hour(s), Rate: 100 mL/hr, Bolus: 200 mL over 15 minute(s), Dispensed: 1000 mL bag, Site: #1 right AC. Medication Ordered: IV NS : initial bolus 200 mL (1000 mL/hr), then 100 mL/hr for 4h (NOW); Routine. Given 14:25 10/16/2016 Guadalupe Dominguez R.N. Medication Administered: DEMEROL [IVP] (MEPERIDINE HCL), Dose: 12.5 mg IVP over 1 minute(s), Site: #1 right AC. Medication Ordered: Demerol IV 12.5 mg (NOW). Given 14:26 10/16/2016 Guadalupe Dominguez R.N. Medication Administered: ATIVAN [IVP] (LORAZEPAM), Dose: 0.5 mg IVP over 1 minute(s), Site: #1 right AC. Medication Ordered: Ativan IV 0.5 mg (NOW). Given 14:50 10/16/2016 Guadalupe Dominguez R.N. Medication Administered: KCL [PO] (POTASSIUM CHLORIDE ER), Dose: 40 meq Syrup/Liquid PO. Medication Ordered: KCl PO 40 meq (NOW). Start 15:15 10/16/2016 Guadalupe Dominguez R.N., Stop 17:20 10/16/2016 Guadalupe Dominguez R.N. Medication Administered: KCL [IVPB] (POTASSIUM CHLORIDE), Dose: 20 meq IVPB over 2 hour(s), Rate: 50 mL/hr, Dispensed: 100 mL bag, Site: #1 right AC. Medication Ordered: KCl IV 20 meq/100mL (Run no faster than 10 units/hr, NOW, Run no faster than 10 mEq/hr). Given 17:20 10/16/2016 Guadalupe Dominguez RPatriciaN. Medication Administered: DEMEROL [IVP] (MEPERIDINE HCL), Dose: 12.5 mg IVP over 1 minute(s), Site: #1 right AC. Medication Ordered: Demerol IV 12.5 mg (NOW). Given 19:30 10/16/2016 Guadalupe Dominguez RPatriciaN. Medication Administered: AUGMENTIN [PO] (AMOXICILLIN-POT CLAVULANATE), Dose: 875 mg Tablets PO. Medication Ordered: Augmentin PO 875 mg (NOW). Given 20:10 10/16/2016 Guadalupe Dominguez R.N. Medication Administered: DEMEROL [IVP] (MEPERIDINE HCL), Dose: 12.5 mg IVP over 1 minute(s), Site: #1 right AC. Medication Ordered: Demerol IV 12.5 mg (NOW).
--- NOTE | 2016-10-20 01:10 | ED MED RECONCILIATION SUMMARY ---
Patient: LUISA BADILLO Medication Reconciliation Report [facility] VisitID: [id number] [address] [place] [address] 61y, F Registration Date/Time: 10/16/2016 Weight: 57.6 kg Height/Length: (not available) BMI: 20.2 ALLERGIES: Acyclovir and Related, Carbamazepine, Cefaclor, Flagyll, Glucosamine, Morphine and Related, Naproxen, Nitrofurantoin, Sulfa Antibiotics, Tegratol The patient's Home Medications are listed below: CONTINUE TAKING THE FOLLOWING MEDICATIONS: Albuterol Sulfate Inhalation 1 unit dose, q 6hrs Carvedilol Oral 28.125 mg , BID Claritin Oral 10 mg, PRN Docusate Calcium Oral (240 mg) 4 capsules daily Famciclovir Oral 250 mg, 2x a day Fluconazole Oral 100 mg, daily, for 9 days Fluticasone Propionate Nasal 2 sprays each nostril daily or BID Furosemide Oral 160 mg, 2x a day Hydrocodone-Acetaminophen Oral 5 mg, max 9 in 24hrs Levothyroxine Sodium Oral 88 mcg, daily Losartan Potassium Oral 25 mg, daily Mesalamine Oral 1.2 gms, 2 tabs daily Methotrexate Oral 2.5 mg, 8 tablets, once a week Nitroglycerin Translingual 0.4mg tablet Potassium Chloride CR Oral (10 meq) 4 tablets, BID PrednisoLONE Oral 15mg, 2x a day Proventil HFA Inhalation 1-2 puffs, NTE 10 puffs, 4x a day Spironolactone Oral 25 mg, daily Vitamin D Oral (2000 unit) 1 capsule, daily Zofran Oral 4 mg The source(s) of the original Home Medication information: Not obtained. The following Medications were given to the patient in the Emergency Department: IV NS IV Fluids bolus 200 mL over 15 minute(s), then 100 mL/hr, administered: 10/16/2016 12:10:00 PM Demerol [IVP] IVP 12.5 mg, administered: 10/16/2016 2:25:00 PM Ativan [IVP] IVP 0.5 mg, administered: 10/16/2016 2:26:00 PM KCL [PO] PO 40 meq, administered: 10/16/2016 2:50:00 PM KCL [IVPB] IVPB bolus 0, then 20 meq 50 mL/hr, administered: 10/16/2016 3:15:00 PM Demerol [IVP] IVP 12.5 mg, administered: 10/16/2016 5:20:00 PM Augmentin [PO] PO 875 mg, administered: 10/16/2016 7:30:00 PM Demerol [IVP] IVP 12.5 mg, administered: 10/16/2016 8:10:00 PM The following Medications were prescribed to the patient: Albuterol HFA oral inhaler: inhale 2 puffs via spacer every 4 hours as needed for wheezing or difficulty breathing, until symptoms improve. Dispense one (1) unit. No refill. -- Alessandro Maier MD Albuterol 0.083% Inhalation Solution: inhale 1 unit dose (3 mL) via nebulizer every 4 hours until symptoms improve, as needed for wheezing or difficulty breathing. Dispense thirty (30) units. No refills. -- Alessandro Maier MD Augmentin 875 mg: take 1 tablet orally every 12 hours for 7 days. Dispense fourteen (14). No refills. Substitution is permissible. -- Alessandro Maier MD Hydrocodone / APAP Liquid 7.5mg/325mg/15 mL: take ten (10) mL orally every 6 hours as needed. Dispense two hundred (200) mL. No refill. -- Alessandro aMier MD
--- NOTE | 2016-10-20 01:10 | ED MED RECONCILIATION SUMMARY ---
Patient: LUISA BADILLO Medication Reconciliation Report [facility] VisitID: [id number] [address] [place] [address] 61y, F Registration Date/Time: 10/16/2016 Weight: 57.6 kg Height/Length: (not available) BMI: 20.2 ALLERGIES: Acyclovir and Related, Carbamazepine, Cefaclor, Flagyll, Glucosamine, Morphine and Related, Naproxen, Nitrofurantoin, Sulfa Antibiotics, Tegratol The patient's Home Medications are listed below: CONTINUE TAKING THE FOLLOWING MEDICATIONS: Albuterol Sulfate Inhalation 1 unit dose, q 6hrs Carvedilol Oral 28.125 mg , BID Claritin Oral 10 mg, PRN Docusate Calcium Oral (240 mg) 4 capsules daily Famciclovir Oral 250 mg, 2x a day Fluconazole Oral 100 mg, daily, for 9 days Fluticasone Propionate Nasal 2 sprays each nostril daily or BID Furosemide Oral 160 mg, 2x a day Hydrocodone-Acetaminophen Oral 5 mg, max 9 in 24hrs Levothyroxine Sodium Oral 88 mcg, daily Losartan Potassium Oral 25 mg, daily Mesalamine Oral 1.2 gms, 2 tabs daily Methotrexate Oral 2.5 mg, 8 tablets, once a week Nitroglycerin Translingual 0.4mg tablet Potassium Chloride CR Oral (10 meq) 4 tablets, BID PrednisoLONE Oral 15mg, 2x a day Proventil HFA Inhalation 1-2 puffs, NTE 10 puffs, 4x a day Spironolactone Oral 25 mg, daily Vitamin D Oral (2000 unit) 1 capsule, daily Zofran Oral 4 mg The source(s) of the original Home Medication information: Not obtained. The following Medications were given to the patient in the Emergency Department: IV NS IV Fluids bolus 200 mL over 15 minute(s), then 100 mL/hr, administered: 10/16/2016 12:10:00 PM Demerol [IVP] IVP 12.5 mg, administered: 10/16/2016 2:25:00 PM Ativan [IVP] IVP 0.5 mg, administered: 10/16/2016 2:26:00 PM KCL [PO] PO 40 meq, administered: 10/16/2016 2:50:00 PM KCL [IVPB] IVPB bolus 0, then 20 meq 50 mL/hr, administered: 10/16/2016 3:15:00 PM Demerol [IVP] IVP 12.5 mg, administered: 10/16/2016 5:20:00 PM Augmentin [PO] PO 875 mg, administered: 10/16/2016 7:30:00 PM Demerol [IVP] IVP 12.5 mg, administered: 10/16/2016 8:10:00 PM The following Medications were prescribed to the patient: Albuterol HFA oral inhaler: inhale 2 puffs via spacer every 4 hours as needed for wheezing or difficulty breathing, until symptoms improve. Dispense one (1) unit. No refill. -- Alessandro Maier MD Albuterol 0.083% Inhalation Solution: inhale 1 unit dose (3 mL) via nebulizer every 4 hours until symptoms improve, as needed for wheezing or difficulty breathing. Dispense thirty (30) units. No refills. -- Alessandro Maier MD Augmentin 875 mg: take 1 tablet orally every 12 hours for 7 days. Dispense fourteen (14). No refills. Substitution is permissible. -- Alessandro Maier MD Hydrocodone / APAP Liquid 7.5mg/325mg/15 mL: take ten (10) mL orally every 6 hours as needed. Dispense two hundred (200) mL. No refill. -- Alessandro Maier MD
--- NOTE | 2016-10-20 01:10 | ED MAR SUMMARY ---
..... Medication Administration Record [facility] [address] [place] [address] Patient: LUISA BADILLO Visit ID: [id number] 61y, F Weight: 57.6 kg Height/Length: 66.5 in BMI: 20.2 ALLERGIES: Acyclovir and Related, Carbamazepine, Cefaclor, Flagyll, Glucosamine, Morphine and Related, Naproxen, Nitrofurantoin, Sulfa Antibiotics, Tegratol Start 12:10 10/16/2016 Guadalupe Dominguez R.N., Stop 20:11 10/16/2016 Indio Mcmanus R.N. Medication Administered: IV NS (SALINE), Dose: IV Fluids over 9 hour(s), Rate: 100 mL/hr, Bolus: 200 mL over 15 minute(s), Dispensed: 1000 mL bag, Site: #1 right AC. Medication Ordered: IV NS : initial bolus 200 mL (1000 mL/hr), then 100 mL/hr for 4h (NOW); Routine. Given 14:25 10/16/2016 Guadalupe Dominguez R.N. Medication Administered: DEMEROL [IVP] (MEPERIDINE HCL), Dose: 12.5 mg IVP over 1 minute(s), Site: #1 right AC. Medication Ordered: Demerol IV 12.5 mg (NOW). Given 14:26 10/16/2016 Guadalupe Dominguez R.N. Medication Administered: ATIVAN [IVP] (LORAZEPAM), Dose: 0.5 mg IVP over 1 minute(s), Site: #1 right AC. Medication Ordered: Ativan IV 0.5 mg (NOW). Given 14:50 10/16/2016 Guadalupe Dominguez R.N. Medication Administered: KCL [PO] (POTASSIUM CHLORIDE ER), Dose: 40 meq Syrup/Liquid PO. Medication Ordered: KCl PO 40 meq (NOW). Start 15:15 10/16/2016 Guadalupe Dominguez R.N., Stop 17:20 10/16/2016 Guadalupe Dominguez R.N. Medication Administered: KCL [IVPB] (POTASSIUM CHLORIDE), Dose: 20 meq IVPB over 2 hour(s), Rate: 50 mL/hr, Dispensed: 100 mL bag, Site: #1 right AC. Medication Ordered: KCl IV 20 meq/100mL (Run no faster than 10 units/hr, NOW, Run no faster than 10 mEq/hr). Given 17:20 10/16/2016 Guadalupe Dominguez RPatriciaN. Medication Administered: DEMEROL [IVP] (MEPERIDINE HCL), Dose: 12.5 mg IVP over 1 minute(s), Site: #1 right AC. Medication Ordered: Demerol IV 12.5 mg (NOW). Given 19:30 10/16/2016 Guadalupe Dominguez RPatriciaN. Medication Administered: AUGMENTIN [PO] (AMOXICILLIN-POT CLAVULANATE), Dose: 875 mg Tablets PO. Medication Ordered: Augmentin PO 875 mg (NOW). Given 20:10 10/16/2016 Guadalupe Dominguez R.N. Medication Administered: DEMEROL [IVP] (MEPERIDINE HCL), Dose: 12.5 mg IVP over 1 minute(s), Site: #1 right AC. Medication Ordered: Demerol IV 12.5 mg (NOW).
== END 2016-10-16 20:15 | disposition home or self-care (01) ==
LOC: ED SRH 10:53
DX: J20.8 Acute bronchitis due to other specified organisms (principal); J44.0 Chronic obstructive pulmonary disease with (acute) lower respiratory infection; E86.0 Dehydration; E87.6 Hypokalemia; I11.0 Hypertensive heart disease with heart failure; I50.9 Heart failure, unspecified; E03.9 Hypothyroidism, unspecified; Z79.899 Other long term (current) drug therapy; Z88.8 Allergy status to other drugs, medicaments and biological substances; Z88.1 Allergy status to other antibiotic agents
CPT/HCPCS: 90047; 90065; 90074; 90100; 90616; 91320; 91400; 92031; 92610; 92720; 93004; 95059

== ENCOUNTER 2016-11-03 18:14 | Emergency (ER) | payer OTHER ==
--- NOTE | 2016-11-03 19:12 | DIAGNOSTIC IMAGING REPORT ---
PROCEDURE: XR CHEST 1 VIEW INDICATION: CHEST PAIN, initial encounter TECHNIQUE: Portable AP view 06:42 p.m. COMPARISON: Chest x-ray 10/16/2016 FINDINGS: Mild right basilar scarring. Right sided pacemaker. Heart size, mediastinum and pulmonary vessels are normal. Tortuous aorta. Thorax is normal. No significant interval change. IMPRESSION: 1. No acute changes 2. Pacemaker
--- NOTE | 2016-11-03 19:38 | ED NURSING NOTES ---
Clinical Report - Nurses [facility] [address] [place] [address] 11/03/2016 18:15 Patient: LUISA BADILLO TRIAGE Triage time 18:17 Nov 03 2016. Acuity: LEVEL 3. Chief Complaint: CHEST PAIN and DISCOMFORT. --18:22 Jose Garg R.N. 18:17 11/03/16. HR: 95. RR: 22. O2 saturation: 96%. Temp: 98.4 F. Pain level now 02/28. --18:22 Jose Garg R.N. 19:44 11/03/16. BP: 132/88. --19:44 Jose Garg R.N. Weight: 64.8 kg stated. Height/Length: 65 inches Per Patient. BMI: 23.8. --18:21 Jose Garg R.N. Medications Albuterol Sulfate Inhalation 1 unit dose, q 6hrs as needed. Carvedilol Oral 28.125 mg , BID. Claritin Oral 10 mg, PRN. Docusate Calcium Oral (Capsule 240 mg) 4 capsules daily. Famciclovir Oral 250 mg, 2x a day. Fluconazole Oral 100 mg, daily, for 9 days. Fluticasone Propionate Nasal 2 sprays each nostril daily or BID. Furosemide Oral 160 mg, 2x a day. Hydrocodone-Acetaminophen Oral 5 mg, as needed, max 9 in 24hrs. Levothyroxine Sodium Oral 88 mcg, daily. Losartan Potassium Oral 25 mg, daily. Mesalamine Oral 1.2 gms, 2 tabs daily. Methotrexate Oral 2.5 mg, 8 tablets, once a week. Nitroglycerin Translingual 0.4mg tablet, as needed. Potassium Chloride CR Oral (Tablet Extended Release 10 meq) 4 tablets, BID. PrednisoLONE Oral 15mg, 2x a day. Proventil HFA Inhalation 1-2 puffs, NTE 10 puffs, 4x a day as needed. Spironolactone Oral 25 mg, daily. Vitamin D Oral (Capsule 2000 unit) 1 capsule, daily. Zofran Oral 4 mg, as needed. --18:18 Jose Garg R.N. Allergies Acyclovir and Related. Carbamazepine. Cefaclor. Flagyll. Glucosamine. Morphine and Related. Naproxen. Nitrofurantoin. Sulfa Antibiotics. Tegratol. --18:18 Jose Garg R.N. History Arrived by EMS. This started just prior to arrival. No difficulty breathing, sweating episodes, nausea or vomiting. Treatment DATABASE ADMIN: None. SOCIAL HX: Never smoker. Occasional alcohol use. No drug use. --18:22 Jose Garg R.N. PROBLEMS: Bronchitis. Arthritis. Syncope. Hypomagnesemia. Heart Disease. Myofascial Strain. Fibromyalgia. 8 autoimmune diseases. Hypokalemia. Atypical Chest Pain. Abnormal Test. Congestive Heart Failure. Immunizations. Hypertension. Allergic Rhinitis. Hypothyroidism. C. Difficile Colitis. Ulcerative Colitis. --18:20 Jose Garg R.N. ADDITIONAL SURGERIES: Breast CA lumpectomy left side. Endometriosis. Hemmorhage with child . Sinus Surgery. Tonsillectomy. Tubal Ligation. --18:19 Jose Garg R.N. Interventions ID and allergy band on patient. To treatment room. --18:22 Jose Garg R.N. PHYSICAL ASSESSMENT GENERAL / NEURO / PSYCH: Alert. Oriented X 4. Appears in no acute distress. RESPIRATORY: Respirations not labored. Chest nontender. Breath sounds within normal limits. CVS: Cardiac rhythm: atrial pacing. --18:22 Jose Garg R.N. NURSING PROGRESS NOTES 18:23 11/03/2016 Aspirin PO Tablets 325 mg given. Allergies verified and confirmed 5 rights. --18:28 Beverly Carrillo R.N. 18:29 11/03/2016 Site #1 started prior to arrival by EMS via IV antecubital space with an 20g angiocath, with aseptic technique; one attempt. Saline lock flushed. --18:29 Jose Garg R.N. 18:29 11/03/2016 Started bag #1 1000 mL IV Fluids IV NS (Saline); bolus of 500 mL wide open via site #1. Allergies verified and confirmed 5 rights. IV patency established. IV site checked: no pain, redness, or swelling. IV flushed thoroughly pre- and post-medication administration. Completed per protocol (started by KAPIL torres). --18:29 Jose Garg R.N. color television console monitor and pulse oximeter placed on patient; threat monitoring analyst- Lead III; monitor alarms on. Patient gowned. Two patient identifiers checked. Call light placed in reach. Side rails up x 1. Bed placed in lowest position. --18:29 Jose Garg R.N. EKG time: (18:33). EKG was performed by a tech and shown to the ED physician. --18:33 Pastora Yu 19:47 11/03/16. BP: 122/82. HR: 94. RR: 16. O2 saturation: 98% on room air. Temp: 98.1 F (oral). Pain level now: 0/10. --19:48 Fanta Martinez R.N. 19:50 11/03/2016 NITROGLYCERIN PASTE Topical Paste 1.5 inch. Applied to the right upper back. Allergies verified and confirmed 5 rights. --19:51 Fanta Martinez R.N. 19:53 11/03/2016 Lovenox (Enoxaparin Sodium) Subcutaneous 60 mg given. Given in the right abdomen. Allergies verified and confirmed 5 rights. --19:53 Fanta Martinez R.N. ( pt asking to take own pain medication, will ask MD and let pt know.). --19:59 Fanta Martinez R.N. 20:10- EDMD ok's for pt to take one tablet of VICODIN 10mg (pts home medication). --20:11 Fanta Martinez R.N. Patient informed about reason for wait (possible transfer to [facility].). --20:11 Fanta Martinez R.N. 20:41 11/03/16. BP: 127/78. HR: 84. O2 saturation: 92%. --20:42 Jose Garg R.N. 21:42 11/03/16. BP: 141/89. HR: 86. O2 saturation: 96%. --21:42 Jose Garg R.N. ( pt asking for RN. Upon entering pt room, pt is tearful and states she does not understand what is happening. extensive reassurance given and teaching concerning possible transfer given again. Pt expresses gratitude and understanding of plan of care. will continue to update pt as transfer process continues.). --21:50 Fanta Martinez R.N. 22:00 11/03/2016 Ativan (LORazepam) IVP 0.5 mg given over 2 minute(s) via site #1. Allergies verified, confirmed 5 rights and sedative warning given. IV patency established. IV site checked: no pain, redness, or swelling. IV flushed thoroughly pre- and post-medication administration. IVP given by RN. --22:00 Jose Garg R.N. 22:01 11/03/16. BP: 141/89. HR: 86. RR: 18. O2 saturation: 95%. Pain level now 0/10. --22:02 Jose Garg R.N. DISPOSITION / DISCHARGE 22:07 11/03/16. BP: 141/89. HR: 77. RR: 18. O2 saturation: 95%. Temp: 98.5 F. --22:08 Jose Garg R.N. Patient's personal items include: shirt and pants, 22:08 Nov 03 2016 22:08 Nov 03 2016; items were given to the patient. --22:08 Jose Garg R.N. Report was given to a nurse via a phone call. Report included patient's care, treatment, medications, reviewed medication reconcilliation, and condition (including any recent changes or anticipated changes). All questions were answered. Report was acknowledged. (report to annelise). --22:12 Jose Garg R.N. Departure time: 0. ( Report given to transport team, no questions, pt verbalized understanding of POC). --22:27 Jose Garg R.N. Locked/Released at 11/08/2016 16:16 by Jose Garg R.N.
--- NOTE | 2016-11-03 19:38 | ED CLINICAL REPORT ---
Clinical Report - Physicians/Mid Levels [facility] [address] [place] [address] 11/03/2016 18:15 Patient: LUISA BADILLO Time Seen: 18:17. Arrived- By ambulance. Historian- patient and EMS personnel. HISTORY OF PRESENT ILLNESS Chief Complaint: CHEST DISCOMFORT. It is described as pressure and dull and it is described as located in the central chest area. No radiation. At its maximum, severity described as moderate. When seen in the E.D., it was gone. Modifying factors- worsened by exertion. Relieved by rest. (especially noted with walking up stairs today). This started today and is still present. It was gradual in onset and has been waxing/waning. Onset during moderate exertion and emotional upset. No nausea or vomiting. She has had difficulty breathing on exertion and has experienced diaphoresis. No additional chest pain. (Pt states she was at a local store and began to feel lightheaded and then believes she felt her AICD shock - she states that she was near syncopal, so may have not been completely aware of the shock). Similar symptoms previously: Recent medical care: The patient was seen recently at this facility in the emergency department. REVIEW OF SYSTEMS No fever, chills, pedal edema, calf pain or fainting episodes. No headache, sore throat, blurred vision, abdominal pain or black stools. No skin rash or bloody stools. She has had joint pain, and depression (states she has been under a lot of stress - recent of her mother and chronic medical problems). She has had moderate palpitations of sudden onset (and noted a presumed shock from her AICD). The palpitations feel like skipped beats. It has been similar to previous symptoms. All systems otherwise negative, except as recorded above. PAST HISTORY CHF Hypertension. Migraine Headache. Hypothyroidism. Stress Reaction. C. Difficile Colitis. PARISA. Rectal Bleed. Ulcerative Colitis. Osteopenia. Breast Cancer. COPD - Chronic Obstructive Pulmonary Disease Fibromyalgia Surgeries: Breast CA lumpectomy left side. Endometriosis. Hemmorhage with child . Sinus Surgery. Tonsillectomy. Tubal Ligation. AICD/Pacer Colectomy/colostomy. No history of aortic disease. Medications: Albuterol Sulfate Inhalation 1 unit dose, q 6hrs as needed. Carvedilol Oral 28.125 mg , BID. Claritin Oral 10 mg, PRN. Docusate Calcium Oral (Capsule 240 mg) 4 capsules daily. Famciclovir Oral 250 mg, 2x a day. Fluconazole Oral 100 mg, daily, for 9 days. Fluticasone Propionate Nasal 2 sprays each nostril daily or BID. Furosemide Oral 160 mg, 2x a day. Hydrocodone-Acetaminophen Oral 5 mg, as needed, max 9 in 24hrs. Levothyroxine Sodium Oral 88 mcg, daily. Losartan Potassium Oral 25 mg, daily. Mesalamine Oral 1.2 gms, 2 tabs daily. Methotrexate Oral 2.5 mg, 8 tablets, once a week. Nitroglycerin Translingual 0.4mg tablet, as needed. Potassium Chloride CR Oral (Tablet Extended Release 10 meq) 4 tablets, BID. PrednisoLONE Oral 15mg, 2x a day. Proventil HFA Inhalation 1-2 puffs, NTE 10 puffs, 4x a day as needed. Spironolactone Oral 25 mg, daily. Vitamin D Oral (Capsule 2000 unit) 1 capsule, daily. Zofran Oral 4 mg, as needed. Allergies: Acyclovir and Related. Carbamazepine. Cefaclor. Flagyll. Glucosamine. Morphine and Related. Naproxen. Nitrofurantoin. Sulfa Antibiotics. Tegratol. SOCIAL HISTORY Never smoker. Occasional alcohol use. No drug use. ADDITIONAL NOTES The nursing notes have been reviewed. PHYSICAL EXAM Vital Signs: 11/03/2016 19:44 BP: 132/88. 11/03/2016 18:17 HR: 95. RR: 22. O2 saturation: 96%. Temp: 98.4 F. Appearance: Alert. Oriented X3. No acute distress. Eyes: Pupils equal, round and reactive to light. Eyes normal inspection. No scleral icterus or pale conjunctivae. ENT: Nose normal. Pharynx normal. No pharyngeal erythema or tonsillar exudate. Neck: Normal inspection. Neck supple. CVS: Normal heart rate and rhythm. Heart sounds normal. Pulses normal. Respiratory: No respiratory distress. Breath sounds normal. Chest nontender. Abdomen: Soft and nontender. Back: Normal external inspection. Skin: Skin warm and dry. Normal skin color. Normal skin turgor. Extremities: Extremities exhibit normal ROM. No calf tenderness. No lower extremity edema. Neuro: Oriented X 3. No motor deficit. LABS, X-RAYS, AND EKG EKG: EKG time: (18:33). Paced rhythm (atrial sensed, ventricular paced). Non-specific ST segment / T wave abnormalities. The study has been interpreted contemporaneously by me. The EKG appears to be a good tracing. Rhythm Strip #1: Normal sinus rhythm. Regular rhythm. Narrow QRS complexes. No ectopy. Chest X-ray: (IMPRESSION: 1. No acute changes 2. Pacemaker). Views: AP (portable). Technique: good. The X-rays were interpreted contemporaneously by me. Laboratory Tests: UA-Culture if indicated: (MADELINE: 11/03/2016 18:47) ( MsgRcvd 11/03/2016 19:03) Final results Test Result Flag Units (Reference) URINE COLOR YELLOW URINE APPEARANCE CLEAR URINE GLUCOSE NEGATIVE (NEGATIVE) URINE BILIRUBIN NEGATIVE (NEGATIVE) URINE KETONE NEGATIVE (NEGATIVE) URINE SPECIFIC GRAVITY 1.010 (1.010-1.030) URINE PH 5.5 (5.0-8.0) URINE PROTEIN NEGATIVE (NEGATIVE) URINE UROBILINOGEN 0.2 EU/dL (0.2-1.0) URINE NITRITE NEGATIVE (NEGATIVE) URINE BLOOD NEGATIVE (NEGATIVE) URINE LEUK ESTERASE NEGATIVE (NEGATIVE) URINE RBC 0-1 rbc/hpf (0-1) URINE WBC 1-3 wbc/hpf (0-1) URINE EPITHELIAL CELLS 1-3 EPI/hpf (0-5) URINE BACTERIA TRACE (<1+) (NONE SEEN) URINE COMMENT CULT NOT INDICATED HYALINE CASTS 2+URINE CULTURES ARE SET-UP BASED ON THE FOLLOWING CRITERIA:POSITIVE NITRITEPOSITIVE LEUKOCYTE ESTERASEGREATER THAN 10 WHITE BLOOD CELLSMODERATE (2+) OR GREATER BACTERIA RBC MORPHOLOGY: (MADELINE: 11/03/2016 18:30) ( MsgRcvd 11/03/2016 19:28) Final results Test Result Flag Units (Reference) WHITE BLOOD COUNT 18.1 H K/uL (4.5-11.5) RED BLOOD COUNT 4.24 M/uL (4.00-5.20) HEMOGLOBIN 12.8 gm/dL (12.0-16.0) HEMATOCRIT 38.9 % (36.0-46.0) MEAN CELL VOLUME 92 fL (80-100) MEAN CORPUSCULAR HGB 30 pg (26-34) MEAN CORPUSCULAR HGB CONC 33 g/dL (31-37) RED CELL DISTRIBUTION WIDTH 24.2 H % (11.6-14.8) PLATELET COUNT 520 H K/uL (150-400) NEUTROPHIL % 77.0 H % (50-75) LYMPH % 10.8 L % (25-40) MONO % 8.3 % (3-14) EOSINOPHIL % 0.1 % (0-4) BASOPHIL % 3.8 H % (0-2) RBC MORPHOLOGY HYPOCHROMASIA 1+~~ANISOCYTOSIS 3+ PT with INR: (MADELINE: 11/03/2016 19:05) ( [facility] [place]:25[place] Final results Test Result Flag Units (Reference) INR 0.9 (0.8-1.2) Low Intensity Therapy: INR 1.5-2.0 PT range 18.5-23.1Mod.Intensity Therapy: INR 2.0-3.0 PT range 23.1-31.5High Intensity Therapy: INR 2.5-3.5 PT range 27.4-35.5High Intensity Therapy 2: INR 3.0-4.0 PT range 31.5-39.3 D-DIMER QUANTITATIVE 0.54 H ug/mLFEU (0.27-0.52) The primary value of this quantitative assay relates toits negative predictive value (i.e. exclusion) of pulmonaryembolism/deep vein thrombosis/DIC.Elevated levels of d-dimer may also occur with:, age, cancer, inflammation, liver disease,post-op, infection, hematoma, coronary disease, peripheralarteriopathy, bleeding disorders and thrombolytic treatment.Results should be correlated with other clinical andradiological data.Testing Methodology: Latex Immunoassay BNP: (MADELINE: 11/03/2016 18:30) ( [facility] [place]/03/[place] 19:08) Final results Test Result Flag Units (Reference) B-TYPE NATRIURETIC PEPTIDE 82.6 pg/ml (5-100) Amylase: (MADELINE: 11/03/2016 19:05) ( MsgRcvd 11/03/2016 19:39) Final results Test Result Flag Units (Reference) AMYLASE 128 H U/L (25-115) THYROID STIMULATING HORMONE 0.262 L uIU/mL (0.30-3.74) CHEM 13 PANEL: (MADELINE: 11/03/2016 19:05) ( MsgRcvd 11/03/2016 19:37) Final results Test Result Flag Units (Reference) GLUCOSE 95 mg/dL (70-110) BUN 22 H mg/dL (7-18) CREATININE 1.2 mg/dL (0.6-1.3) Estimated GFR 48.38 mL/min Estimated GFR- 58.64 mL/min Note: Persistent reduction over 3 months in eGFR<60 mL/min/1.73 m2 defines CKD. Patients with eGFR values>=60 mL/min/1.73 m2 may also have CKD if evidence ofpersistent proteinuria. Additional information may be foundat www.kidney.org. SODIUM 140 mmol/L (136-145) POTASSIUM 3.2 L mmol/L (3.5-5.1) CHLORIDE 100 mmol/L (98-107) CARBON DIOXIDE 27 mmol/L (21-32) CALCIUM 9.4 mg/dL (8.5-10.1) TOTAL PROTEIN 7.1 g/dL (6.4-8.2) ALBUMIN 3.4 g/dL (3.3-5.0) BILIRUBIN, TOTAL 0.3 mg/dL (0.0-1.0) ALKALINE PHOSPHATASE 129 H U/L (46-116) AST (SGOT) 30 U/L (15-37) ALT (SGPT) 57 U/L (12-78) MAGNESIUM 2.0 mg/dL (1.8-2.4) CPK 32 U/L (24-260) TROPONIN I <0.05 L ng/mL (0.00-1.5) TROPONIN REFERENCE RANGE:<0.1 NEGATIVE0.1-1.5 INDETERMINANT>1.5 POSITIVE . Pulse Oximetry: 11/03/2016 18:17 O2 saturation: 96%. (FIO2 - room air). Interpretation: normal. PROGRESS AND PROCEDURES Course of Care: Nitroglycerin 1.5 inches paste inches. Normal Saline 500 mL IVPB given. ASA 325 mg PO given. Ativan 0.5mg IVP given. Lovenox 60 mg subQ given. Pt remains pain free. She is under a lot of emotional stress lately. Symptoms are c/w [place] and likely defibrillation shock (during episode of near syncope) mild d-dimer elevation c/w chronic illness. Discussed case with hospitalist, ([facility] call placed 19:47). Reviewed test results. Agreed upon treatment plan. Refers case to other health care provider. Discussed case with on-call health care provider, ([facility] [place] - Dr Hugo ([facility]) call placed 20:01. 21:43 call returned from [facility] hospitalist - accepts pt). Reviewed test results. Agreed upon treatment plan. Patient/family counseled. Old ED records reviewed. Transfer orders written. Disposition: Benefits, risks and alternatives to transfer explained. Transferred to [facility]. Condition: stable and improved. CLINICAL IMPRESSION Chronic mild left ventricular congestive heart failure. Unstable angina .12 lead EKG performed. Abnormal EKG. Clinical picture does not suggest myocardial infarction, aortic dissection or pulmonary embolism. Suspected shock from AICD (first episode) History of hypothyroidism - mildly over replaced. (Electronically signed by Oswaldo Lacey DO 11/03/2016 23:17)
--- NOTE | 2016-11-03 19:38 | ED ORDER SUMMARY ---
..... Patient: LUISA BADILLO OrderSheet [facility] VisitID: [id number] [address] [place] [address] 61y, F Registration Date/Time: 11/03/2016 ORDER SHEET Weight: 64.8 kg (stated) Allergies: Acyclovir and Related, Carbamazepine, Cefaclor, Flagyll, Glucosamine, Morphine and Related, Naproxen, Nitrofurantoin, Sulfa Antibiotics, Tegratol GENERAL ORDERS: Chest 1V Urgent (18:11/03/2016 PHutchinson DO) (Ack 18:34 LTapper) (20:40 MCampbell) Global Marketing Operations Manager (Continuous) [facility] [facility] (18:30 DBeyer R.N.) UA-Culture if indicated Urgent (:11/03/2016 PHarchinson DO) (Ack 18:34 LTapper) (20:04 RCollier R.N.) Cardiac Panel Stat (:11/03/[address] [facility] (Ack 18:34 LTapper) (20:04 RCollier R.N.) BNP Urgent (:11/03/2016 PHarchinson DO) (Ack 18:34 LTapper) (20:04 RCollier R.N.) D-Dimer Urgent (18:11/03/2016 PHarchinson DO) (Ack 18:34 LTapper) (20:04 RCollier R.N.) Amylase Urgent (18:11/03/2016 PHarchinson DO) (Ack 18:34 LTapper) (20:04 RCollier R.N.) PT with INR Urgent (18:11/03/2016 PHarchinson DO) (Ack 18:34 LTapper) (20:04 RCollier R.N.) TSH Urgent (18:11/03/2016 PHarchinson DO) (Ack 18:34 LTapper) (20:04 RCollier R.N.) Oxygen (2 L/min) (NC) (18:11/03/2016 PHarchinson DO) (18:30 DBeyer R.N.) Pulse oximeter (18:22 11/03/2016 [facility]) (18:30 DBeyer R.N.) EKG - ER Stat (18:22 11/03/2016 [facility]) (18:30 DBeyer R.N.) Vitals (18:22 11/03/2016 [facility]) (18:30 DBeyer R.N.) Call (Place call to): (Dr Montes De Oca) (19:39 11/03/2016 [facility]) (20:04 RCollier R.N.) MEDICATION ORDERS: Aspirin PO 325 mg (NOW) (18:21 11/03/2016 [facility]) (18:28 Wolfgang R.N.) NitroGLYCERIN Paste Topical 1.5 in. (NOW, to CW) (19:31 11/03/2016 [facility]) (Ack 19:39 RCollier R.N.) (19:51 RCollier R.N.) Lovenox Subcut 60 mg (HIGH ALERT MEDICATION, NOW) (19:32 11/03/2016 [facility]) (Ack 19:39 RCollier R.N.) (19:53 RCollier R.N.) IV FLUIDS: IV NS : initial bolus 500 mL (1000 mL/hr), then 250 mL/hr for X2 (NOW) (18:22 11/03/2016 [facility]) (18:29 DBeyer R.N.) Ativan IV 1 mg (HIGH ALERT MEDICATION, NOW) (21:43 11/03/2016 [facility]) (Cancelled: Other21:55 [facility]) Ativan IV 0.5 mg (HIGH ALERT MEDICATION, NOW) (21:55 11/03/2016 [facility]) (22:00 DBeyer R.N.) ORDER SHEET NOTES: [Electronically signed by Oswaldo Lacey DO (23:17 11/03/2016)] [Electronically signed by Jose Garg R.N. (16:16 11/08/2016)] [Electronically locked/signed by Jose Garg R.N. (16:16 11/08/2016)]
--- NOTE | 2016-11-03 19:38 | ED NURSING NOTES ---
Clinical Report - Nurses [facility] [address] [place] [address] 11/03/2016 18:15 Patient: LUISA BADILLO TRIAGE Triage time 18:17 Nov 03 2016. Acuity: LEVEL 3. Chief Complaint: CHEST PAIN and DISCOMFORT. --18:22 Jose Garg R.N. 18:17 11/03/16. HR: 95. RR: 22. O2 saturation: 96%. Temp: 98.4 F. Pain level now 02/28. --18:22 Jose Garg R.N. 19:44 11/03/16. BP: 132/88. --19:44 Jose Garg R.N. Weight: 64.8 kg stated. Height/Length: 65 inches Per Patient. BMI: 23.8. --18:21 Jose Garg R.N. Medications Albuterol Sulfate Inhalation 1 unit dose, q 6hrs as needed. Carvedilol Oral 28.125 mg , BID. Claritin Oral 10 mg, PRN. Docusate Calcium Oral (Capsule 240 mg) 4 capsules daily. Famciclovir Oral 250 mg, 2x a day. Fluconazole Oral 100 mg, daily, for 9 days. Fluticasone Propionate Nasal 2 sprays each nostril daily or BID. Furosemide Oral 160 mg, 2x a day. Hydrocodone-Acetaminophen Oral 5 mg, as needed, max 9 in 24hrs. Levothyroxine Sodium Oral 88 mcg, daily. Losartan Potassium Oral 25 mg, daily. Mesalamine Oral 1.2 gms, 2 tabs daily. Methotrexate Oral 2.5 mg, 8 tablets, once a week. Nitroglycerin Translingual 0.4mg tablet, as needed. Potassium Chloride CR Oral (Tablet Extended Release 10 meq) 4 tablets, BID. PrednisoLONE Oral 15mg, 2x a day. Proventil HFA Inhalation 1-2 puffs, NTE 10 puffs, 4x a day as needed. Spironolactone Oral 25 mg, daily. Vitamin D Oral (Capsule 2000 unit) 1 capsule, daily. Zofran Oral 4 mg, as needed. --18:18 Jose Garg R.N. Allergies Acyclovir and Related. Carbamazepine. Cefaclor. Flagyll. Glucosamine. Morphine and Related. Naproxen. Nitrofurantoin. Sulfa Antibiotics. Tegratol. --18:18 Jose Garg R.N. History Arrived by EMS. This started just prior to arrival. No difficulty breathing, sweating episodes, nausea or vomiting. 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 SOCIAL HX: Never smoker. Occasional alcohol use. No drug use. --18:22 Jose Garg R.N. PROBLEMS: Bronchitis. Arthritis. Syncope. Hypomagnesemia. Heart Disease. Myofascial Strain. Fibromyalgia. 8 autoimmune diseases. Hypokalemia. Atypical Chest Pain. Abnormal Test. Congestive Heart Failure. Immunizations. Hypertension. Allergic Rhinitis. Hypothyroidism. C. Difficile Colitis. Ulcerative Colitis. --18:20 Jose Garg R.N. ADDITIONAL SURGERIES: Breast CA lumpectomy left side. Endometriosis. Hemmorhage with child . Sinus Surgery. Tonsillectomy. Tubal Ligation. --18:19 Jose Garg R.N. Interventions ID and allergy band on patient. To treatment room. --18:22 Jose Garg R.N. PHYSICAL ASSESSMENT GENERAL / NEURO / PSYCH: Alert. Oriented X 4. Appears in no acute distress. RESPIRATORY: Respirations not labored. Chest nontender. Breath sounds within normal limits. CVS: Cardiac rhythm: atrial pacing. --18:22 Jose Garg R.N. NURSING PROGRESS NOTES 18:23 11/03/2016 Aspirin PO Tablets 325 mg given. Allergies verified and confirmed 5 rights. --18:28 Beverly Carrillo R.N. 18:29 11/03/2016 Site #1 started prior to arrival by EMS via IV antecubital space with an 20g angiocath, with aseptic technique; one attempt. Saline lock flushed. --18:29 Jose Garg R.N. 18:29 11/03/2016 Started bag #1 1000 mL IV Fluids IV NS (Saline); bolus of 500 mL wide open via site #1. Allergies verified and confirmed 5 rights. IV patency established. IV site checked: no pain, redness, or swelling. IV flushed thoroughly pre- and post-medication administration. Completed per protocol (started by KAPIL torres). --18:29 Jose Garg R.N. monitoring tech and pulse oximeter placed on patient; site monitor- Lead III; monitor alarms on. Patient gowned. Two patient identifiers checked. Call light placed in reach. Side rails up x 1. Bed placed in lowest position. --18:29 Jose Garg R.N. EKG time: (18:33). EKG was performed by a tech and shown to the ED physician. --18:33 Pastora Yu 19:47 11/03/16. BP: 122/82. HR: 94. RR: 16. O2 saturation: 98% on room air. Temp: 98.1 F (oral). Pain level now: 0/10. --19:48 Fanta Martinez R.N. 19:50 11/03/2016 NITROGLYCERIN PASTE Topical Paste 1.5 inch. Applied to the right upper back. Allergies verified and confirmed 5 rights. --19:51 Fanta Martinez R.N. 19:53 11/03/2016 Lovenox (Enoxaparin Sodium) Subcutaneous 60 mg given. Given in the right abdomen. Allergies verified and confirmed 5 rights. --19:53 Fanta Martinez R.N. ( pt asking to take own pain medication, will ask MD and let pt know.). --19:59 Fanta Martinez R.N. 20:10- EDMD ok's for pt to take one tablet of VICODIN 10mg (pts home medication). --20:11 Fanta Martinez R.N. Patient informed about reason for wait (possible transfer to [facility].). --20:11 Fanta Martinez R.N. 20:41 11/03/16. BP: 127/78. HR: 84. O2 saturation: 92%. --20:42 Jose Garg R.N. 21:42 11/03/16. BP: 141/89. HR: 86. O2 saturation: 96%. --21:42 Jose Garg R.N. ( pt asking for RN. Upon entering pt room, pt is tearful and states she does not understand what is happening. extensive reassurance given and teaching concerning possible transfer given again. Pt expresses gratitude and understanding of plan of care. will continue to update pt as transfer process continues.). --21:50 Fanta Martinez R.N. 22:00 11/03/2016 Ativan (LORazepam) IVP 0.5 mg given over 2 minute(s) via site #1. Allergies verified, confirmed 5 rights and sedative warning given. IV patency established. IV site checked: no pain, redness, or swelling. IV flushed thoroughly pre- and post-medication administration. IVP given by RN. --22:00 Jose Garg R.N. 22:01 11/03/16. BP: 141/89. HR: 86. RR: 18. O2 saturation: 95%. Pain level now 0/10. --22:02 Jose Garg R.N. DISPOSITION / DISCHARGE 22:07 11/03/16. BP: 141/89. HR: 77. RR: 18. O2 saturation: 95%. Temp: 98.5 F. --22:08 Jose Garg R.N. Patient's personal items include: shirt and pants, 22:08 Nov 03 2016 22:08 Nov 03 2016; items were given to the patient. --22:08 Jose Garg R.N. Report was given to a nurse via a phone call. Report included patient's care, treatment, medications, reviewed medication reconcilliation, and condition (including any recent changes or anticipated changes). All questions were answered. Report was acknowledged. (report to annelise). --22:12 Jose Garg R.N. Departure time: 0. ( Report given to transport team, no questions, pt verbalized understanding of POC). --22:27 Jose Garg R.N. Locked/Released at 11/08/2016 16:16 by Jose Garg R.N.
--- NOTE | 2016-11-03 19:38 | ED ORDER SUMMARY ---
..... Patient: LUISA BADILLO OrderSheet [facility] VisitID: [id number] [address] [place] [address] 61y, F Registration Date/Time: 11/03/2016 ORDER SHEET Weight: 64.8 kg (stated) Allergies: Acyclovir and Related, Carbamazepine, Cefaclor, Flagyll, Glucosamine, Morphine and Related, Naproxen, Nitrofurantoin, Sulfa Antibiotics, Tegratol GENERAL ORDERS: Chest 1V Urgent (18:11/03/2016 PHutchinson DO) (Ack 18:34 LTapper) (20:40 MCampbell) Process Artist (Continuous) [facility] (18:30 DBeyer R.N.) UA-Culture if indicated Urgent (:11/03/2016 PHilchinson DO) (Ack 18:34 LTapper) (20:04 RCollier R.N.) Cardiac Panel Stat (:11/03/2016 [facility] (Ack 18:34 LTapper) (20:04 RCollier R.N.) BNP Urgent (:11/03/2016 PHilchinson DO) (Ack 18:34 LTapper) (20:04 RCollier R.N.) D-Dimer Urgent (18:11/03/2016 PHilchinson DO) (Ack 18:34 LTapper) (20:04 RCollier R.N.) Amylase Urgent (18:11/03/2016 PHilchinson DO) (Ack 18:34 LTapper) (20:04 RCollier R.N.) PT with INR Urgent (18:11/03/2016 PHilchinson DO) (Ack 18:34 LTapper) (20:04 RCollier R.N.) TSH Urgent (18:11/03/2016 PHilchinson DO) (Ack 18:34 LTapper) (20:04 RCollier R.N.) Oxygen (2 L/min) (NC) (18:11/03/2016 PHilchinson DO) (18:30 DBeyer R.N.) Pulse oximeter (18:22 11/03/2016 [facility]) (18:30 DBeyer R.N.) EKG - ER Stat (18:22 11/03/2016 [facility]) (18:30 DBeyer R.N.) Vitals (18:22 11/03/2016 [facility]) (18:30 DBeyer R.N.) Call (Place call to): (Dr Montes De Oca) (19:39 11/03/2016 [facility]) (20:04 RCollier R.N.) MEDICATION ORDERS: Aspirin PO 325 mg (NOW) (18:21 11/03/2016 [facility]) (18:28 Wolfgang R.N.) NitroGLYCERIN Paste Topical 1.5 in. (NOW, to CW) (19:31 11/03/2016 [facility]) (Ack 19:39 RCollier R.N.) (19:51 RCollier R.N.) Lovenox Subcut 60 mg (HIGH ALERT MEDICATION, NOW) (19:32 11/03/2016 [facility]) (Ack 19:39 RCollier R.N.) (19:53 RCollier R.N.) IV FLUIDS: IV NS : initial bolus 500 mL (1000 mL/hr), then 250 mL/hr for X2 (NOW) (18:22 11/03/2016 [facility]) (18:29 DBeyer R.N.) Ativan IV 1 mg (HIGH ALERT MEDICATION, NOW) (21:43 11/03/2016 [facility]) (Cancelled: Other21:55 [facility]) Ativan IV 0.5 mg (HIGH ALERT MEDICATION, NOW) (21:55 11/03/2016 [facility]) (22:00 DBeyer R.N.) ORDER SHEET NOTES: [Electronically signed by Oswaldo Lacey DO (23:17 11/03/2016)] [Electronically signed by Jose Garg R.N. (16:16 11/08/2016)] [Electronically locked/signed by Jose Garg R.N. (16:16 11/08/2016)]
--- NOTE | 2016-11-08 16:16 | ED MED RECONCILIATION SUMMARY ---
Patient: LUISA BADILLO Medication Reconciliation Report [facility] VisitID: [id number] [address] [place] [address] 61y, F Registration Date/Time: 11/03/2016 Weight: 64.8 kg Height/Length: 65 in. BMI: 23.8 ALLERGIES: Acyclovir and Related, Carbamazepine, Cefaclor, Flagyll, Glucosamine, Morphine and Related, Naproxen, Nitrofurantoin, Sulfa Antibiotics, Tegratol The patient's Home Medications are listed below: THE FOLLOWING MEDICATIONS NEED TO BE RECONCILED: Albuterol Sulfate Inhalation 1 unit dose, q 6hrs Carvedilol Oral 28.125 mg , BID Claritin Oral 10 mg, PRN Docusate Calcium Oral (240 mg) 4 capsules daily Famciclovir Oral 250 mg, 2x a day Fluconazole Oral 100 mg, daily, for 9 days Fluticasone Propionate Nasal 2 sprays each nostril daily or BID Furosemide Oral 160 mg, 2x a day Hydrocodone-Acetaminophen Oral 5 mg, max 9 in 24hrs Levothyroxine Sodium Oral 88 mcg, daily Losartan Potassium Oral 25 mg, daily Mesalamine Oral 1.2 gms, 2 tabs daily Methotrexate Oral 2.5 mg, 8 tablets, once a week Nitroglycerin Translingual 0.4mg tablet Potassium Chloride CR Oral (10 meq) 4 tablets, BID PrednisoLONE Oral 15mg, 2x a day Proventil HFA Inhalation 1-2 puffs, NTE 10 puffs, 4x a day Spironolactone Oral 25 mg, daily Vitamin D Oral (2000 unit) 1 capsule, daily Zofran Oral 4 mg The source(s) of the original Home Medication information: Not obtained. The following Medications were given to the patient in the Emergency Department: Aspirin [PO] PO 325 mg, administered: 11/03/2016 6:23:00 PM IV NS IV Fluids bolus 500 mL wide open, administered: 11/03/2016 6:29:00 PM NITROGLYCERIN PASTE [TOPICAL] Topical 1.5 in., administered: 11/03/2016 7:50:00 PM Lovenox [Subcutaneous] Subcutaneous 60 mg, administered: 11/03/2016 7:53:00 PM Ativan [IVP] IVP 0.5 mg, administered: 11/03/2016 10:00:00 PM The following Medications were prescribed to the patient: None.
--- NOTE | 2016-11-08 16:16 | ED DISCHARGE INSTRUCTIONS ---
Patient: LUISA BADILLO General Instructions [facility] VisitID: [id number] [address] [place] [address] 61y, F Registration Date/Time: 11/03/2016 Chronic mild left ventricular congestive heart failure. Unstable angina .12 lead EKG performed. Abnormal EKG. Suspected shock from AICD (first episode) History of hypothyroidism - mildly over replaced. (Electronically signed by Oswaldo Lacey DO 11/03/2016 23:17)
--- NOTE | 2016-11-08 16:16 | ED MAR SUMMARY ---
..... Medication Administration Record [facility] [address] [place] [address] Patient: LUISA BADILLO Visit ID: [id number] 61y, F Weight: 64.8 kg Height/Length: 65 in BMI: 23.8 ALLERGIES: Acyclovir and Related, Carbamazepine, Cefaclor, Flagyll, Glucosamine, Morphine and Related, Naproxen, Nitrofurantoin, Sulfa Antibiotics, Tegratol Given 18:23 11/03/2016 Beverly Carrillo R.N. Medication Administered: ASPIRIN [PO], Dose: 325 mg Tablets PO. Medication Ordered: Aspirin PO 325 mg (NOW). Start 18:29 11/03/2016 Jose Garg R.N. Medication Administered: IV NS (SALINE), Dose: IV Fluids, Bolus: 500 mL wide open, Dispensed: 1000 mL bag, Site: #1 AC. Medication Ordered: IV NS : initial bolus 500 mL (1000 mL/hr), then 250 mL/hr for X2 (NOW). Given 19:50 11/03/2016 Fanta Martinez R.N. Medication Administered: NITROGLYCERIN PASTE [TOPICAL], Dose: 1.5 in. Paste Topical. Medication Ordered: NitroGLYCERIN Paste Topical 1.5 in. (NOW, to ). Given 19:53 11/03/2016 Fanta Martinez R.N. Medication Administered: LOVENOX [SUBCUTANEOUS] (ENOXAPARIN SODIUM), Dose: 60 mg Subcutaneous. Medication Ordered: Lovenox Subcut 60 mg (HIGH ALERT MEDICATION, NOW). Given 22:00 11/03/2016 Jose Garg R.N. Medication Administered: ATIVAN [IVP] (LORAZEPAM), Dose: 0.5 mg IVP over 2 minute(s), Site: #1 AC. Medication Ordered: Ativan IV 0.5 mg (HIGH ALERT MEDICATION, NOW).
--- NOTE | 2016-11-08 16:16 | ED DISCHARGE INSTRUCTIONS ---
Patient: LUISA BADILLO General Instructions [facility] VisitID: [id number] [address] [place] [address] 61y, F Registration Date/Time: 11/03/2016 Chronic mild left ventricular congestive heart failure. Unstable angina .12 lead EKG performed. Abnormal EKG. Suspected shock from AICD (first episode) History of hypothyroidism - mildly over replaced. (Electronically signed by Oswaldo Lacey DO 11/03/2016 23:17)
--- NOTE | 2016-11-08 16:16 | ED MED RECONCILIATION SUMMARY ---
Patient: LUISA BADILLO Medication Reconciliation Report [facility] VisitID: [id number] [address] [place] [address] 61y, F Registration Date/Time: 11/03/2016 Weight: 64.8 kg Height/Length: 65 in. BMI: 23.8 ALLERGIES: Acyclovir and Related, Carbamazepine, Cefaclor, Flagyll, Glucosamine, Morphine and Related, Naproxen, Nitrofurantoin, Sulfa Antibiotics, Tegratol The patient's Home Medications are listed below: THE FOLLOWING MEDICATIONS NEED TO BE RECONCILED: Albuterol Sulfate Inhalation 1 unit dose, q 6hrs Carvedilol Oral 28.125 mg , BID Claritin Oral 10 mg, PRN Docusate Calcium Oral (240 mg) 4 capsules daily Famciclovir Oral 250 mg, 2x a day Fluconazole Oral 100 mg, daily, for 9 days Fluticasone Propionate Nasal 2 sprays each nostril daily or BID Furosemide Oral 160 mg, 2x a day Hydrocodone-Acetaminophen Oral 5 mg, max 9 in 24hrs Levothyroxine Sodium Oral 88 mcg, daily Losartan Potassium Oral 25 mg, daily Mesalamine Oral 1.2 gms, 2 tabs daily Methotrexate Oral 2.5 mg, 8 tablets, once a week Nitroglycerin Translingual 0.4mg tablet Potassium Chloride CR Oral (10 meq) 4 tablets, BID PrednisoLONE Oral 15mg, 2x a day Proventil HFA Inhalation 1-2 puffs, NTE 10 puffs, 4x a day Spironolactone Oral 25 mg, daily Vitamin D Oral (2000 unit) 1 capsule, daily Zofran Oral 4 mg The source(s) of the original Home Medication information: Not obtained. The following Medications were given to the patient in the Emergency Department: Aspirin [PO] PO 325 mg, administered: 11/03/2016 6:23:00 PM IV NS IV Fluids bolus 500 mL wide open, administered: 11/03/2016 6:29:00 PM NITROGLYCERIN PASTE [TOPICAL] Topical 1.5 in., administered: 11/03/2016 7:50:00 PM Lovenox [Subcutaneous] Subcutaneous 60 mg, administered: 11/03/2016 7:53:00 PM Ativan [IVP] IVP 0.5 mg, administered: 11/03/2016 10:00:00 PM The following Medications were prescribed to the patient: None.
--- NOTE | 2016-11-08 16:16 | ED MAR SUMMARY ---
..... Medication Administration Record [facility] [address] [place] [address] Patient: LUISA BADILLO Visit ID: [id number] 61y, F Weight: 64.8 kg Height/Length: 65 in BMI: 23.8 ALLERGIES: Acyclovir and Related, Carbamazepine, Cefaclor, Flagyll, Glucosamine, Morphine and Related, Naproxen, Nitrofurantoin, Sulfa Antibiotics, Tegratol Given 18:23 11/03/2016 Beverly Carrillo R.N. Medication Administered: ASPIRIN [PO], Dose: 325 mg Tablets PO. Medication Ordered: Aspirin PO 325 mg (NOW). Start 18:29 11/03/2016 Jose Garg R.N. Medication Administered: IV NS (SALINE), Dose: IV Fluids, Bolus: 500 mL wide open, Dispensed: 1000 mL bag, Site: #1 AC. Medication Ordered: IV NS : initial bolus 500 mL (1000 mL/hr), then 250 mL/hr for X2 (NOW). Given 19:50 11/03/2016 Fanta Martinez R.N. Medication Administered: NITROGLYCERIN PASTE [TOPICAL], Dose: 1.5 in. Paste Topical. Medication Ordered: NitroGLYCERIN Paste Topical 1.5 in. (NOW, to ). Given 19:53 11/03/2016 Fanta Martinez R.N. Medication Administered: LOVENOX [SUBCUTANEOUS] (ENOXAPARIN SODIUM), Dose: 60 mg Subcutaneous. Medication Ordered: Lovenox Subcut 60 mg (HIGH ALERT MEDICATION, NOW). Given 22:00 11/03/2016 Jose Garg R.N. Medication Administered: ATIVAN [IVP] (LORAZEPAM), Dose: 0.5 mg IVP over 2 minute(s), Site: #1 AC. Medication Ordered: Ativan IV 0.5 mg (HIGH ALERT MEDICATION, NOW).
== END 2016-11-03 22:32 | disposition short-term general hospital (02) ==
LOC: ED SRH 18:14
DX: I50.1 Left ventricular failure, unspecified (principal); I20.0 Unstable angina; R94.31 Abnormal electrocardiogram [ECG] [EKG]; Z95.810 Presence of automatic (implantable) cardiac defibrillator; Z86.39 Personal history of other endocrine, nutritional and metabolic disease; I10 Essential (primary) hypertension; J44.9 Chronic obstructive pulmonary disease, unspecified; Z79.899 Other long term (current) drug therapy; Z88.8 Allergy status to other drugs, medicaments and biological substances; Z88.5 Allergy status to narcotic agent; Z88.2 Allergy status to sulfonamides; Z88.1 Allergy status to other antibiotic agents
CPT/HCPCS: 90004; 90074; 90100; 90616; 91320; 91556; 92530; 92610; 92720; 93140; 94060; 95059